=== PATIENT | female | born 1945 | race Caucasian/White ===

== ENCOUNTER 2021-06-20 11:27 | Outpatient (REF) | payer MEDICARE, SELFPAY ==
[2021-06-20 14:17] LABS: MANUAL DIFF FLAG NO
[2021-06-20 14:19] LABS: Basophils Absolute Auto 0.1 X10*3/uL (0.0-0.2); Basophils Percent Auto 1.1 % (0-2); Eosinophils Absolute Auto 0.1 X10*3/uL (0.0-0.4); Eosinophils Percent Auto 1.4 % (0-4); Hemoglobin 13.6 g/dl (12.0-16.0); Imm Gran Abs Auto 0.03 X10*3/uL (0.00-0.03); Imm Gran Pct Auto 0.4 % (0.0-0.4); Lymphocytes Absolute Auto 2.8 X10*3/uL (1.2-4.9); Lymphocytes Percent Auto 32.8 % (20-40); Mean Corpuscular HGB Conc 30.9 g/dl (31.0-35.0); Mean Corpuscular Hemoglobin 27.8 pg (27.0-33.0); Mean Corpuscular Volume 89.8 fL (80.0-98.0); Mean Platelet Volume 9.9 fL (9.4-12.3); Monocytes Absolute Auto 0.8 X10*3/uL (0.1-1.2); Monocytes Percent Auto 9.5 % (2-11); Neutrophils Absolute Auto 4.7 x10*3/uL (2.0-8.3); Neutrophils Percent Auto 54.8 % (45-73); Platelet Count 251 X10*3/uL (160-400); Red Cell Distribution Width 13.1 % (11.0-16.0); White Blood Count 8.5 X10*3/uL (4.8-10.8)
[2021-06-20 14:39] LABS: Alanine Aminotransferase 61 U/L (0-31); Albumin Level 3.9 g/dL (3.5-5.0); Alkaline Phosphatase 60 U/L (39-117); Anion Gap 17 (12-20); Aspartate Amino Transferase 30 U/L (5-31); Bilirubin Total 0.4 mg/dL (0.0-1.0); Blood Urea Nitrogen 16 mg/dL (9-16); Calcium 9.7 mg/dL (8.4-10.2); Carbon Dioxide 25 mmol/L (22-29); Chloride 102 mmol/L (96-108); Cholesterol 210 mg/dL; Estimated Glomerular Filt Rate 57; Glucose Fasting 107 mg/dL (60-99); HDL Cholesterol 58 mg/dL; LDL Cholesterol Calculated 119 mg/dl; Potassium 4.6 mmol/L (3.3-5.1); Sodium 139 mmol/L (135-145); Triglycerides 165 mg/dL
[2021-06-20 15:02] LABS: TSH reflex Free T4 1.56 uIU/mL (0.32-4.0)
== END 2021-06-20 11:28 | disposition home or self-care (01) ==
LOC: HO.WFDLDS 11:27
PROVIDERS: Visit Provider Family Medicine
DX: Z00.00 Encounter for general adult medical examination without abnormal findings (principal)
CPT/HCPCS: 36415; 80053; 80061; 84443; 85025

== ENCOUNTER 2021-08-29 10:47 | Outpatient (REF) | payer MEDICARE, SELFPAY ==
[2021-08-29 14:39] LABS: Alanine Aminotransferase 18 U/L (0-31); Albumin Level 3.8 g/dL (3.5-5.0); Alkaline Phosphatase 53 U/L (39-117); Anion Gap 14 (12-20); Aspartate Amino Transferase 16 U/L (5-31); Bilirubin Total 0.5 mg/dL (0.0-1.0); Blood Urea Nitrogen 15 mg/dL (9-16); Calcium 9.7 mg/dL (8.4-10.2); Carbon Dioxide 26 mmol/L (22-29); Chloride 104 mmol/L (96-108); Cholesterol 194 mg/dL; Estimated Glomerular Filt Rate 55; Glucose Fasting 100 mg/dL (60-99); HDL Cholesterol 55 mg/dL; LDL Cholesterol Calculated 112 mg/dl; Potassium 4.5 mmol/L (3.3-5.1); Sodium 139 mmol/L (135-145); Total Protein 7.2 g/dL (6.5-8.0); Triglycerides 137 mg/dL
[2021-08-29 15:08] LABS: Estimated Average Glucose 117 mg/dL; Hemoglobin A1c % 5.7 %
== END 2021-08-29 10:48 | disposition home or self-care (01) ==
LOC: HO.WFDLDS 10:47
PROVIDERS: Visit Provider Family Medicine
DX: Z00.00 Encounter for general adult medical examination without abnormal findings (principal); R73.01 Impaired fasting glucose; Z86.79 Personal history of other diseases of the circulatory system
CPT/HCPCS: 36415; 80053; 80061; 83036

== ENCOUNTER 2022-04-16 11:19 | Outpatient (REF) | payer MEDICARE, SELFPAY ==
[2022-04-16 15:29] LABS: Alanine Aminotransferase 13 U/L (0-31); Albumin Level 3.9 g/dL (3.5-5.0); Alkaline Phosphatase 55 U/L (39-117); Anion Gap 14 (12-20); Aspartate Amino Transferase 15 U/L (5-31); Bilirubin Total 0.6 mg/dL (0.0-1.0); Blood Urea Nitrogen 14 mg/dL (9-16); Calcium 9.2 mg/dL (8.4-10.2); Carbon Dioxide 27 mmol/L (22-29); Chloride 104 mmol/L (96-108); Cholesterol 183 mg/dL; Estimated Glomerular Filt Rate > 60; Glucose Fasting 99 mg/dL (60-99); HDL Cholesterol 51 mg/dL; LDL Cholesterol Calculated 105 mg/dl; Potassium 4.5 mmol/L (3.3-5.1); Sodium 140 mmol/L (135-145); Triglycerides 136 mg/dL
[2022-04-16 15:33] LABS: Estimated Average Glucose 120 mg/dL; Hemoglobin A1c % 5.8 %
== END 2022-04-16 11:20 | disposition home or self-care (01) ==
LOC: HO.WFDLDS 11:19
PROVIDERS: Visit Provider Family Medicine
DX: Z00.00 Encounter for general adult medical examination without abnormal findings (principal); R73.01 Impaired fasting glucose
CPT/HCPCS: 36415; 80053; 80061; 83036

== ENCOUNTER 2023-02-03 10:30 | Outpatient (REF) | payer MEDICARE, SELFPAY ==
[2023-02-03 12:01] LABS: MANUAL DIFF FLAG NO
[2023-02-03 12:03] LABS: Basophils Absolute Auto 0.1 X10*3/uL (0.0-0.2); Basophils Percent Auto 0.9 % (0-2); Eosinophils Absolute Auto 0.1 X10*3/uL (0.0-0.4); Eosinophils Percent Auto 1.6 % (0-4); Hematocrit 44.8 % (37.0-47.0); Hemoglobin 14.4 g/dl (12.0-16.0); Imm Gran Abs Auto 0.01 X10*3/uL (0.00-0.03); Imm Gran Pct Auto 0.1 % (0.0-0.4); Lymphocytes Absolute Auto 2.5 X10*3/uL (1.2-4.9); Lymphocytes Percent Auto 33.4 % (20-40); Mean Corpuscular HGB Conc 32.1 g/dl (31.0-35.0); Mean Corpuscular Hemoglobin 28.1 pg (27.0-33.0); Mean Corpuscular Volume 87.3 fL (80.0-98.0); Mean Platelet Volume 9.7 fL (9.4-12.3); Monocytes Absolute Auto 0.7 X10*3/uL (0.1-1.2); Neutrophils Absolute Auto 4.2 x10*3/uL (2.0-8.3); Platelet Count 239 X10*3/uL (160-400); Red Blood Count 5.13 X10*6/uL (4.20-5.50); White Blood Count 7.6 X10*3/uL (4.8-10.8)
[2023-02-03 13:01] LABS: Anion Gap 14 (12-20); Blood Urea Nitrogen 13 mg/dL (9-16); Calcium 10.1 mg/dL (8.4-10.2); Carbon Dioxide 27 mmol/L (22-29); Chloride 105 mmol/L (96-108); Estimated Glomerular Filt Rate > 60; Glucose Random 103 mg/dL (60-115); Sodium 142 mmol/L (135-145)
[2023-02-03 13:03] LABS: Vitamin D 25-OH Total 122.8 ng/mL (>30)
== END 2023-02-03 10:31 | disposition home or self-care (01) ==
LOC: HO.WFDLDS 10:30
PROVIDERS: Visit Provider Family Medicine
DX: Z00.00 Encounter for general adult medical examination without abnormal findings (principal); E55.9 Vitamin D deficiency, unspecified
CPT/HCPCS: 36415; 80048; 82306; 85025

== ENCOUNTER 2023-02-10 10:38 | Outpatient (AMB) | payer MEDICARE, SELFPAY ==
--- NOTE | 2023-02-10 10:45 | MHC.PC.OV ---
Vital Signs 02/10/23 10:49 Height 5 ft Weight 138 lb BMI 26.9 BP 128/60 Blood Pressure Location Lt brachial Position Sitting Pulse 92 Pulse Source Pulse Oximeter Pulse Oximetry (%) 95 Oxygen Delivery Method Room Air Intake Visit Reasons: f/u chronic conditions and labs Intake Note: Patient is here to follow up on chronic conditions and labs. Allergies amoxicillin [From Augmentin] Allergy (Unknown, Verified 02/10/23 10:51) Rash clavulanic acid [From Augmentin] Allergy (Unknown, Verified 02/10/23 10:51) Rash Seasonal Allergies Allergy (Unknown, Verified 02/10/23 10:51) Unknown codeine Allergy (Verified 02/10/23 10:51) Unknown Tobacco use date assessed: 02/10/23 Fall risk assessment: 1 Fall in past year Last assessed Fall Risk: 02/10/23 Dental Screening Dental Screen Date: 02/10/23 Did you have a dental visit in the last 12 months?: No Did you have a dental problem in the last 6 months where you did not have access to dental care?: No Was dental information given to patient?: Patient has dentist HPI f/u chronic conditions and labs HPI Details 77 y/o female presents to f/u chronic conditions and labs. Labs were drawn 02/03/23. Reviewed labs with pt. No recent lipid panel. CBC was fine. Blood pressure today 128/60. She is on atenolol 25mg daily. Pt reports fatigue. [facility] Medical History History of COVID-19 Hx of myocardial infarction Hx of coronary artery disease Surgical History History of angioplasty Family History Mother No problems noted. Father No problems noted. Social History Housing: House Patient Tobacco Use Status: Never used Tobacco e-Cigarette/Vaping Use: Never Used Second Hand Smoke Exposure: No service: No Current occupational status: retired Current occupational exposures/hazards: No Cognitive needs: No Hearing needs: No Vision needs: No Questionnaire Thrive Questionnaire Date Thrive assessed: 04/26/21 CECY-7 AMB Questionnaire CECY-7 Date CECY - 7 assessed: 09/07/21 Source: Developed by Drs. Yusef Luque, Carmen Wooten, Onel Galeas and colleagues, with an educational evette from [employer]. Review of Systems Const Reports fatigue, Denies headache(s) and Denies weakness ENT Denies dizziness and Denies headache(s) Card Denies chest pain, Denies lightheadedness, Denies dyspnea and Denies other (Palpitations) Resp Denies cough, Denies dyspnea, Denies wheezing and Denies other ( shortness of breath) Musc Denies numbness and Denies tingling Neuro Denies dizziness, Denies headache(s), Denies numbness, Denies tingling, Denies paresthesias and Denies weakness Psych Denies anxiety and Denies depression Endo Reports fatigue Aller/Immun Denies wheezing Physical exam (Primary Care) Vital Signs: Last Vital Signs Pulse 92 02/10/23 10:49 BP 128/60 02/10/23 10:49 Pulse Ox 95 02/10/23 10:49 Oxygen Delivery Method Room Air 02/10/23 10:49 BMI result Body Mass Index 26.9 Tobacco/Smoking Status: Tobacco use Status Tobacco use date assessed 02/10/23 02/10/23 11:00 Patient Tobacco Use Status Never used Tobacco 02/10/23 10:46 e-Cigarette/Vaping Use Never Used 02/10/23 10:46 Thrive Assessment: Date of Thrive Assessment Date Thrive assessed 04/26/21 02/10/23 10:46 Const General: no acute distress and well developed Nutritional Appearance: well nourished Orientation/consciousness: patient oriented [facility]3 [facility]: Yes normocephalic and Yes atraumatic Eyes General: appearance normal, both eyes and all related structures Pupils: Equal, round and reactive pupils present EOM: EOMs intact bilaterally Resp Effort & Inspection: normal respiratory effort Auscultation: clear to auscultation bilaterally Cardio Rate: regular rate Rhythm: regular rhythm Heart sounds: S1 normal heart sound present, S2 normal heart sound present, no gallops, no murmurs and no rubs Neuro General: patient oriented x3 and gait normal Cranial nerves: Yes Equal, round and reactive pupils present Psych Affect: normal affect Assessment and Plan Assessment & Plan (1) Hypertension: Code(s): I10 - Essential (primary) hypertension Plan: Blood?pressure?is?controlled.??Goal?is?less?than?130/80 Continue?current?medication?regimen (2) Hyperlipidemia: Code(s): E78.5 - Hyperlipidemia, unspecified Plan: Will?be?due?for?lipid?check?at?next?visit Labs?ordered (3) Coronary artery disease: Code(s): I25.10 - Atherosclerotic heart disease of [place] coronary artery without angina pectoris Plan: As?above.??Goal?for?LDL?is?less?than?70 Recheck?lipids?with?next?visit Primarily?has?her?lipids?controlled?by?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 No?S/S?sleep?apnea Likely?anxiety Patient?declines?medications?or?therapy Encouraged?ongoing?exercise Check?labs (5) Anxiety: Code(s): F41.9 - Anxiety disorder, unspecified Plan: As?above (6) Difficulty sleeping: Code(s): G47.9 - Sleep disorder, unspecified Plan: As?above Orders: Orders Comprehensive [place]. Panel Fast Today Z00.00 - Encounter for general adult medical examination without abnormal findings Triiodothyronine T3 Total Today E03.9 - Hypothyroidism, unspecified Free T4 (Free Thyroxine) Today E03.9 - Hypothyroidism, unspecified Lipid Panel Today Z00.00 - Encounter for general adult medical examination without abnormal findings Microalbumin, Random (w Creat) Today I10 - Essential (primary) hypertension UA and rflx microscopic Today Z00.00 - Encounter for general adult medical examination without abnormal findings Thyroid Stimulating Hormone Today E03.9 - Hypothyroidism, unspecified Vitamin D 25-OH Total Today E55.9 - Vitamin D deficiency, unspecified Coding Level of Care Code Est Pt Level 4 (47243) Diagnoses Hypertension I10 Hyperlipidemia E78.5 Coronary artery disease I25.10 Fatigue R53.83 Anxiety F41.9 Difficulty sleeping G47.9
[2023-02-10 10:49] VITALS: BP 128/60; PULSE 92; O2SAT 95; BMI 26.9
== END 2023-02-10 11:27 | disposition home or self-care (01) ==
PROVIDERS: PCP Family Medicine; Visit Provider Family Medicine
DX: I10 Essential (primary) hypertension (principal); E78.5 Hyperlipidemia, unspecified; I25.10 Atherosclerotic heart disease of native coronary artery without angina pectoris; R53.83 Other fatigue; F41.9 Anxiety disorder, unspecified; G47.9 Sleep disorder, unspecified
CPT/HCPCS: 99214

== ENCOUNTER 2023-07-01 10:47 | Outpatient (REF) | payer MEDICARE, SELFPAY ==
[2023-07-01 12:55] LABS: Alanine Aminotransferase 19 U/L (0-31); Alkaline Phosphatase 84 U/L (39-117); Anion Gap 14 (12-20); Aspartate Amino Transferase 15 U/L (5-31); Bilirubin Total 0.4 mg/dL (0.0-1.0); Blood Urea Nitrogen 16 mg/dL (9-16); Calcium 9.8 mg/dL (8.4-10.2); Carbon Dioxide 28 mmol/L (22-29); Chloride 105 mmol/L (96-108); Cholesterol 223 mg/dL (<200); Estimated Glomerular Filt Rate > 60; Glucose Fasting 116 mg/dL (60-99); HDL Cholesterol 64 mg/dL (>40); LDL Cholesterol Calculated 131 mg/dL (<100); Potassium 4.4 mmol/L (3.3-5.1); Sodium 143 mmol/L (135-145); Total Protein 7.2 g/dL (6.5-8.0); Triglycerides 143 mg/dL (<150)
[2023-07-01 13:14] LABS: Free T4 (Free Thyroxine) 0.92 ng/dL (0.71-1.85); Thyroid Stimulating Hormone 1.66 uIU/mL (0.32-4.0); Vitamin D 25-OH Total 103.3 ng/mL (>30)
[2023-07-04 08:58] LABS: Triiodothyronine T3 Total 100 ng/dL (76-181)
== END 2023-07-01 10:48 | disposition home or self-care (01) ==
LOC: HO.WFDLDS 10:47
PROVIDERS: Visit Provider Family Medicine
DX: Z00.00 Encounter for general adult medical examination without abnormal findings (principal); E03.9 Hypothyroidism, unspecified; E55.9 Vitamin D deficiency, unspecified; I10 Essential (primary) hypertension
CPT/HCPCS: 36415; 80053; 80061; 82306; 84439; 84443; 84480

== ENCOUNTER 2023-07-14 10:13 | Outpatient (AMB) | payer MEDICARE, SELFPAY ==
[2023-07-14 10:25] VITALS: BP 140/82; PULSE 89; O2SAT 98; BMI 27.1
--- NOTE | 2023-07-14 10:25 | MHC.PC.OV ---
Vital Signs 07/14/23 10:25 Height 5 ft Weight 139 lb BMI 27.1 BP 140/82 H Blood Pressure Location Lt brachial Position Sitting Pulse 89 Pulse Source Pulse Oximeter Pulse Oximetry (%) 98 Oxygen Delivery Method Room Air Intake Visit Reasons: f/u chronic conditions and labs Intake Note: Patient is here to follow up on chronic conditions and labs. Patient has requested refill of Atenolol. Allergies amoxicillin [From Augmentin] Allergy (Unknown, Verified 07/14/23 10:29) Rash clavulanic acid [From Augmentin] Allergy (Unknown, Verified 07/14/23 10:29) Rash Seasonal Allergies Allergy (Unknown, Verified 07/14/23 10:29) Unknown codeine Allergy (Verified 07/14/23 10:29) Unknown Medication List - Last Reconciled 07/14/23 by Roldan Carty MD acetylcysteine (NAC) 600 mg PO DAILY apple cider vinegar mg PO ascorbic acid (vitamin C) 500 mg PO BID aspirin 81 mg PO DAILY atenolol 25 mg (1/2 x 50 mg) PO DAILY 90 days cholecalciferol (vitamin D3) 50 mcg PO DAILY glucosamine sulfate 1,000 mg PO BID magnesium hydroxide mg PO omega 0-vft-utq-fish oil 1,000 mg (120 mg-180 mg) 1 cap PO DAILY red clover leaf extract mg PO Tobacco use date assessed: 07/14/23 Fall risk assessment: No Falls in past year Last assessed Fall Risk: 07/14/23 Dental Screening Dental Screen Date: 07/14/23 HPI f/u chronic conditions and labs HPI Details 78 y/o female presents to f/u chronic conditions and labs. Blood pressure today 140/82. She notes she needs a refill on her atenolol and has not taken this today. Labs were drawn 07/01/23. Elevated fasting glucose and last A1c 04/16/22 5.8% - in pre-diabetes range. TC 223. Triglycerides 143. LDL 131. HDL 64. Pt reports some fatigue and feels she is tired all the time. [facility] Medical History History of COVID-19 Hx of myocardial infarction Hx of coronary artery disease Surgical History History of angioplasty Family History Mother No problems noted. Father No problems noted. Social History Housing: House Patient Tobacco Use Status: Never used Tobacco e-Cigarette/Vaping Use: Never Used Second Hand Smoke Exposure: No service: No Current occupational status: retired Current occupational exposures/hazards: No Cognitive needs: No Hearing needs: No Vision needs: No Questionnaire PHQ-9 Over the last 2 weeks, how often have you been bothered by any of the following problems? 47802 - PHQ-9 Billing: Patient declined-do not bill Source: Developed by Drs. Yusef Luque, Carmen Wooten, Onel Galeas and colleagues, with an educational evette from [employer]. Thrive Questionnaire Date Thrive assessed: 07/14/23 I am a: Patient What is your living situation today?: I have a steady place to live Within the past 12 months, did the food you bought not last and you didn't have the money to get more?: Never true Within the past 12 months, did you worry whether your food would run out before you got money to buy more?: Never true Do you have trouble paying for medicines?: No Do you have trouble getting transportation to medical appointments?: No Do you have trouble paying your heating and electricity bill?: No Do you have trouble taking care of your child, family member or friend?: No Do you have trouble with day-to-day activities such as bathing, preparing meals, shopping, managing finances, etc.?: No Are you currently unemployed and looking for a job?: No Are you interested in more education?: No THRIVE Score: 0 AUDIT C Alcohol Use Questionnaire (AUDIT-C) 1. How often do you have a drink containing alcohol?: Monthly or less 2. How many drinks containing alcohol do you have on a typical day when you are drinking?: 1 or 2 3. How often do you have six or more drinks on one occasion?: Never Total Score: 1 CECY-7 AMB Questionnaire CECY-7 Date CECY - 7 assessed: 07/14/23 Source: Developed by Drs. Yusef Luque, Carmen Wooten, Onel Galeas and colleagues, with an educational evette from [employer]. CECY-7 Assessment Billing CECY-7 Assessment Tool: pt declined-do not bill Review of Systems Const Denies chills, Reports fatigue, Denies fever(s), Denies headache(s) and Denies weakness ENT Denies dizziness and Denies headache(s) Card Denies dyspnea Resp Denies cough, Denies dyspnea, Denies wheezing and Denies other (shortness of breath) Musc Denies numbness and Denies tingling Neuro Denies dizziness, Denies headache(s), Denies numbness, Denies tingling and Denies weakness Psych Denies anxiety and Denies depression Endo Reports fatigue Aller/Immun Denies wheezing Physical exam (Primary Care) Vital Signs: Last Vital Signs Pulse 89 07/14/23 10:25 BP 140/82 H 07/14/23 10:25 Pulse Ox 98 07/14/23 10:25 Oxygen Delivery Method Room Air 07/14/23 10:25 BMI result Body Mass Index 27.1 Tobacco/Smoking Status: Tobacco use Status Tobacco use date assessed 07/14/23 07/14/23 10:34 Patient Tobacco Use Status Never used Tobacco 07/14/23 10:28 e-Cigarette/Vaping Use Never Used 07/14/23 10:28 Thrive Assessment: Date of Thrive Assessment Date Thrive assessed 07/14/23 07/14/23 10:41 Const General: well developed; No acute distress Nutritional Appearance: well nourished Orientation/consciousness: patient oriented x3 HENMT Head: Yes normocephalic and Yes atraumatic Eyes General: appearance normal, both eyes and all related structures Pupils: Equal, round and reactive pupils present EOM: EOMs intact bilaterally Resp Effort & Inspection: normal respiratory effort Auscultation: clear to auscultation bilaterally Cardio Rate: regular rate Rhythm: regular rhythm Heart sounds: S1 normal heart sound present, S2 normal heart sound present, no gallops, no murmurs and no rubs Neuro General: patient oriented x3 and gait normal Cranial nerves: Yes Equal, round and reactive pupils present Psych Affect: normal affect Assessment and Plan Assessment & Plan (1) Hypertension: Code(s): I10 - Essential (primary) hypertension Plan: Blood?pressure?is?a?little?elevated?today?but?she?has?not?taken?her?medication?as?she?is?out?of?it.??Goal?is?less?than?130/80 Refilled?atenolol (2) Pre-diabetes: Code(s): R73.03 - Prediabetes Plan: A1c?has?been?in?pre?diabetes?range.??Blood?sugars?still?elevated Encouraged?diet?lower?in?sugars?and?starches Will?recheck?along?with?A1c?with?her?next?blood?draw (3) Hyperlipidemia: Code(s): E78.5 - Hyperlipidemia, unspecified Plan: Lipids?are?high?and?goal?for?LDL?is?less?than?70?as?she?has?coronary?artery?disease She?declines?statins She?can?try?red?yeast?rice?and?lecithin Also?briefly?mentioned?Zetia Will?recheck?in?3-6?months (4) Coronary artery disease: Code(s): I25.10 - Atherosclerotic heart disease of [place] coronary artery without angina pectoris Plan: Encouraged?good?blood?pressure?control?and?also?better?control?of?her?lipids?and?sugars Follow-up?with?Cardiology?as?recommended Currently?stable (5) Folliculitis: Code(s): L73.9 - Follicular disorder, unspecified Plan: Try?Hibiclens Orders: Orders Comprehensive [place]. Panel Fast Today Z00.00 - Encounter for general adult medical examination without abnormal findings Lipid Panel Today Z00.00 - Encounter for general adult medical examination without abnormal findings Hemoglobin A1c Today R73.01 - Impaired fasting glucose Medications: Refilled atenolol 25 mg (1/2 x 50 mg) PO DAILY 90 days 45 tabs 3RF Coding Level of Care Code Est Pt Level 4 (79447) Diagnoses Hypertension I10 Pre-diabetes R73.03 Hyperlipidemia E78.5 Coronary artery disease I25.10 Folliculitis L73.9
== END 2023-07-14 11:35 | disposition home or self-care (01) ==
PROVIDERS: PCP Family Medicine; Visit Provider Family Medicine
DX: I10 Essential (primary) hypertension (principal); R73.03 Prediabetes; E78.5 Hyperlipidemia, unspecified; I25.10 Atherosclerotic heart disease of native coronary artery without angina pectoris; L73.9 Follicular disorder, unspecified
CPT/HCPCS: 99214

== ENCOUNTER 2023-11-04 10:51 | Outpatient (REF) | payer MEDICARE, SELFPAY ==
[2023-11-04 17:09] LABS: Estimated Average Glucose 117 mg/dL; Hemoglobin A1c % 5.7 % (<6.0)
[2023-11-04 17:19] LABS: Alanine Aminotransferase 16 U/L (0-31); Albumin Level 4.1 g/dL (3.5-5.0); Alkaline Phosphatase 74 U/L (39-117); Anion Gap 15 (12-20); Aspartate Amino Transferase 18 U/L (5-31); Bilirubin Total 0.6 mg/dL (0.0-1.0); Blood Urea Nitrogen 12 mg/dL (9-16); Calcium 10.1 mg/dL (8.4-10.2); Carbon Dioxide 28 mmol/L (22-29); Chloride 105 mmol/L (96-108); Cholesterol 198 mg/dL (<200); Estimated Glomerular Filt Rate 58; Glucose Fasting 116 mg/dL (60-99); HDL Cholesterol 67 mg/dL (>40); LDL Cholesterol Calculated 109 mg/dL (<100); Potassium 4.6 mmol/L (3.3-5.1); Sodium 143 mmol/L (135-145); Total Protein 7.7 g/dL (6.5-8.0); Triglycerides 110 mg/dL (<150)
== END 2023-11-04 10:52 | disposition home or self-care (01) ==
LOC: HO.WFDLDS 10:51
PROVIDERS: Visit Provider Family Medicine
DX: Z00.00 Encounter for general adult medical examination without abnormal findings (principal); R73.01 Impaired fasting glucose
CPT/HCPCS: 36415; 80053; 80061; 83036

== ENCOUNTER 2023-11-10 10:52 | Outpatient (AMB) | payer MEDICARE, SELFPAY ==
--- NOTE | 2023-11-10 11:51 | MHC.PC.OV ---
Vital Signs 11/10/23 12:03 Height 4 ft 11.09 in Weight 135 lb 6 oz BMI 27.3 BP 110/76 Blood Pressure Location Lt brachial Position Sitting Respiration 18 Pulse 96 Pulse Source Pulse Oximeter Temp 98 F Temp Source Tympanic Pulse Oximetry (%) 95 Oxygen Delivery Method Room Air Intake Visit Reasons: f/u extended?exam?and?f/u?lipids?and?health? Intake Note: follow up on labs,and cellulites, pt had an allergic reaction to lesathin medication due to the soy within it Allergies soy Allergy (Severe, Verified 11/10/23 11:53) Hives amoxicillin [From Augmentin] Allergy (Unknown, Verified 11/10/23 11:53) Rash clavulanic acid [From Augmentin] Allergy (Unknown, Verified 11/10/23 11:53) Rash Seasonal Allergies Allergy (Unknown, Verified 11/10/23 11:53) Unknown codeine Allergy (Verified 11/10/23 11:53) Unknown Medication List - Last Reconciled 11/10/23 by Roldan Carty MD acetylcysteine (NAC) 600 mg PO DAILY ascorbic acid (vitamin C) 500 mg PO BID aspirin 81 mg PO DAILY atenolol 25 mg (1/2 x 50 mg) PO DAILY 90 days cholecalciferol (vitamin D3) 50 mcg PO DAILY glucosamine sulfate 1,000 mg PO BID magnesium hydroxide mg PO red clover leaf extract mg PO turmeric root extract 1,000 mg PO DAILY Tobacco use date assessed: 07/14/23 Dental Screening Dental Screen Date: 07/14/23 HPI f/u extended?exam?and?f/u?lipids?and?health? HPI Details 78 y/o female presents today for a physical but visit has been converted to an acute visit. Labs were drawn 11/04/23. Reviewed labs with pt. A1c 5.7%. Triglycerides 110. TC 198. LDL 109. HDL 67. Blood pressure today 110/76. She is on atenolol 25mg daily. She has complaints of an allergic reaction to soy. [facility] Medical History History of COVID-19 Hx of myocardial infarction Hx of coronary artery disease Surgical History History of angioplasty Family History Mother No problems noted. Father No problems noted. Social History Housing: House Patient Tobacco Use Status: Never used Tobacco e-Cigarette/Vaping Use: Never Used Second Hand Smoke Exposure: No service: No Current occupational status: retired Current occupational exposures/hazards: No Cognitive needs: No Hearing needs: No Vision needs: No Questionnaire Thrive Questionnaire Date Thrive assessed: 07/14/23 CECY-7 AMB Questionnaire CECY-7 Date CECY - 7 assessed: 07/14/23 Source: Developed by Drs. Yusef Luque, Carmen Wooten, Onel Galeas and colleagues, with an educational evette from [employer]. Review of Systems Const Denies chills, Denies fatigue, Denies fever(s), Denies headache(s) and Denies weakness Eyes Denies change in vision ENT Denies dizziness, Denies headache(s), Denies hearing loss, Denies nasal congestion, Denies sinus pain, Denies sinus pressure and Denies sore throat Card Denies chest pain, Denies lightheadedness, Denies dyspnea and Denies other (palpitations) Resp Denies cough, Denies dyspnea and Denies wheezing GI Denies abdominal pain, Denies melena, Denies hematochezia, Denies change in bowel habits, Denies dyspepsia and Denies nausea Denies hematuria and Denies dysuria Musc Denies abnormal gait, Denies myalgias, Denies arthralgias, Denies numbness and Denies tingling Skin/Breast Denies rash, Denies unusual bruising and Denies wounds Neuro Denies abnormal gait, Denies dizziness, Denies headache(s), Denies memory loss, Denies numbness, Denies tingling and Denies weakness Psych Denies anxiety, Denies depression and Denies memory loss Endo Denies cold intolerance, Denies fatigue, Denies heat intolerance, Denies polydipsia and Denies polyuria Kamran/Lymph Denies easy bleeding and Denies easy bruising Aller/Immun Denies wheezing Physical exam (Primary Care) Vital Signs: Last Vital Signs Temp 98 F 11/10/23 12:03 Pulse 96 11/10/23 12:03 Resp 18 11/10/23 12:03 BP 110/76 11/10/23 12:03 Pulse Ox 95 11/10/23 12:03 Oxygen Delivery Method Room Air 11/10/23 12:03 BMI result Body Mass Index 27.3 Tobacco/Smoking Status: Tobacco use Status Tobacco use date assessed 07/14/23 11/10/23 12:05 Patient Tobacco Use Status Never used Tobacco 11/10/23 12:05 e-Cigarette/Vaping Use Never Used 11/10/23 12:05 Thrive Assessment: Date of Thrive Assessment Date Thrive assessed 07/14/23 11/10/23 12:05 Const General: no acute distress, well developed, alert and awake Nutritional Appearance: well nourished Orientation/consciousness: patient oriented x3 HENMT Head: Yes normocephalic and Yes atraumatic Eyes General: appearance normal, both eyes and all related structures Pupils: Equal, round and reactive pupils present EOM: EOMs intact bilaterally Chest Chest palpation & inspection: normal inspection of the chest Resp Effort & Inspection: normal respiratory effort Auscultation: clear to auscultation bilaterally Cardio Rate: regular rate Rhythm: regular rhythm Neuro General: patient oriented x3 and gait normal Cranial nerves: Yes Equal, round and reactive pupils present Deep tendon reflexes (DTR's): Right patellar reflex intensity grade: 2+ and Left patellar reflex intensity grade: 2+ Psych Affect: normal affect Assessment and Plan Assessment & Plan (1) Hypertension: Code(s): I10 - Essential (primary) hypertension Plan: Blood?pressure?is?controlled.??Goal?is?less?than?130/80 Continue?current?medication (2) Hyperlipidemia: Code(s): E78.5 - Hyperlipidemia, unspecified Plan: Patient?has?elevated?LDL?cholesterol?and?history?of?coronary?artery?disease.??Goal?for?LDL?is?less?than?70?and?she?was?significantly?above?this. Patient?is?adamantly?against?statins. We?had?recommended?red?yeast?rice?and?lecithin?because?she?was?more?interested?in?trying?supplements?for?this. However,?patient?seems?to?have?an?allergic?reaction?and?attributes?it?to?those?supplements.??Unclear?how?long?she?persisted?in?taking?this?though?she?has?stopped?it?now. She?has?brought?her?cholesterol?down??but?is?still?significantly?above?goal?of?less?than?70 Continue?lifestyle?changes (3) Coronary artery disease: Code(s): I25.10 - Atherosclerotic heart disease of [place] coronary artery without angina pectoris Plan: Stable (4) Allergic dermatitis: Code(s): L23.9 - Allergic contact dermatitis, unspecified cause Plan: As?above,?patient?has?what?appears?to?be?allergic?dermatitis.??She?is?concerned?about?cellulitis?but?has?no?fevers,?excess?warmth,?no?pain. Primary?signs/symptoms?are?mild?erythema?will?with?significant?itching?and?some?small?excoriations over?both?forearms,?shoulders?and?anterior?chest.??Also?some?involvement?at?left?ribs?and?top?of?shoulders. We?discussed?that?this?does?appear?allergic?and?may?be?due?to?the?supplements?that?we?had?discussed?at?her?last?visit. She?had?called?a telemedicine?physician?and?was?given?a?topical?steroid?which?has?helped?a?little?bit?with?the?itch.??She?would?like?to?trial?an?oral?steroids?such?as?prednisone. Will?give?her?a?7?day?course?of?steroids?and?follow-up?with?her?in?about?10?days. Will?make?a?referral?to?immunology?as?this?has?been?going?on?for?quite?some?time.??Will?also?make?a?referral?to?Dermatology?to?help?with?skin?lesions?and?itch. Orders: Referrals Allergy & Immunology Referral L23.9 - Allergic contact dermatitis, unspecified cause, T78.40XA - Allergy, unspecified, initial encounter Dermatology Referral L23.9 - Allergic contact dermatitis, unspecified cause Medications: New prednisone 2 tablets x 3 days, then 1 tablet x 2 day, then 1/2 tablet x 2 days then stop. 7 days 9 tabs 0RF Coding Level of Care Code Est Pt Level 4 (85218) Diagnoses Hypertension I10 Hyperlipidemia E78.5 Coronary artery disease I25.10 Allergic dermatitis L23.9
[2023-11-10 12:03] VITALS: BP 110/76; PULSE 96; RESP 18; TEMP 36.6; O2SAT 95; BMI 27.3
== END 2023-11-10 13:06 | disposition home or self-care (01) ==
PROVIDERS: PCP Family Medicine; Visit Provider Family Medicine
DX: I10 Essential (primary) hypertension (principal); E78.5 Hyperlipidemia, unspecified; I25.10 Atherosclerotic heart disease of native coronary artery without angina pectoris; L23.9 Allergic contact dermatitis, unspecified cause
CPT/HCPCS: 99214

== ENCOUNTER 2023-11-25 13:37 | Outpatient (AMB) | payer MEDICARE, SELFPAY ==
--- NOTE | 2023-11-25 13:43 | A.OFFPC_ITS ---
Vital Signs 11/25/23 13:45 Height 5 ft 1 in Weight 136 lb 2 oz BMI 25.7 BP 120/60 Blood Pressure Location Lt brachial Position Sitting Respiration 12 Pulse 94 Pulse Source Pulse Oximeter Temp 98 F Temp Source Tympanic Pulse Oximetry (%) 96 Oxygen Delivery Method Room Air Intake Visit Reasons: F/U for allergic reaction Intake Note: follow up for allergic reaction Allergies soy Allergy (Severe, Verified 11/25/23 13:44) Hives amoxicillin [From Augmentin] Allergy (Unknown, Verified 11/25/23 13:44) Rash clavulanic acid [From Augmentin] Allergy (Unknown, Verified 11/25/23 13:44) Rash Seasonal Allergies Allergy (Unknown, Verified 11/25/23 13:44) Unknown codeine Allergy (Verified 11/25/23 13:44) Unknown Medication List - Last Reconciled 11/25/23 by Roldan Carty MD acetylcysteine (NAC) 600 mg PO DAILY ascorbic acid (vitamin C) 500 mg PO BID aspirin 81 mg PO DAILY atenolol 25 mg (1/2 x 50 mg) PO DAILY 90 days cholecalciferol (vitamin D3) 50 mcg PO DAILY glucosamine sulfate 1,000 mg PO BID magnesium hydroxide mg PO prednisone 2 tablets x 3 days, then 1 tablet x 2 day, then 1/2 tablet x 2 days then stop. 7 days red clover leaf extract mg PO turmeric root extract 1,000 mg PO DAILY Tobacco use date assessed: 07/14/23 Dental Screening Dental Screen Date: 07/14/23 HPI F/U for allergic reaction HPI Details 78 y/o female presents today to f/u jenni rgic reaction with allergic dermatitis. Had given her a 7 day course of prednisone. Continued her topical steroid and allergra/benadryl for the itch. Had also referred her to immunology/allergy and also to dermatology. Pt reports allergic dermatitis has been improving but still reports some irritation. She notes she has not gotten a call from dermatology or immunology yet. She reports ongoing stressors. [facility] Medical History History of COVID-19 Hx of myocardial infarction Hx of coronary artery disease Surgical History History of angioplasty Family History Mother No problems noted. Father No problems noted. Social History Housing: House Patient Tobacco Use Status: Never used Tobacco e-Cigarette/Vaping Use: Never Used Second Hand Smoke Exposure: No service: No Current occupational status: retired Current occupational exposures/hazards: No Cognitive needs: No Hearing needs: No Vision needs: No Questionnaire Thrive Questionnaire Date Thrive assessed: 07/14/23 CECY-7 AMB Questionnaire CECY-7 Date CECY - 7 assessed: 07/14/23 Source: Developed by Drs. Yusef Luque, Carmen Wooten, Onel Galeas and colleagues, with an educational evette from [employer]. Review of Systems Const Denies chills, Denies fatigue, Denies fever(s), Denies headache(s) and Denies weakness ENT Denies dizziness and Denies headache(s) Card Denies dyspnea Resp Denies cough, Denies dyspnea, Denies wheezing and Denies other (shortness of breath) Musc Denies numbness and Denies tingling Neuro Denies dizziness, Denies headache(s), Denies numbness, Denies tingling and Denies weakness Psych Reports anxiety and Denies depression Endo Denies fatigue Aller/Immun Denies wheezing Physical exam (Primary Care) Tobacco/Smoking Status: Tobacco use Status Tobacco use date assessed 07/14/23 11/10/23 13:15 Patient Tobacco Use Status Never used Tobacco 11/10/23 13:15 e-Cigarette/Vaping Use Never Used 11/10/23 13:15 Thrive Assessment: Date of Thrive Assessment Date Thrive assessed 07/14/23 11/10/23 13:15 Const General: well developed; No acute distress Nutritional Appearance: well nourished Orientation/consciousness: patient oriented x3 HENMT Head: Yes normocephalic and Yes atraumatic Eyes General: appearance normal, both eyes and all related structures Pupils: Equal, round and reactive pupils present EOM: EOMs intact bilaterally Resp Effort & Inspection: normal respiratory effort Auscultation: clear to auscultation bilaterally Cardio Rate: regular rate Rhythm: regular rhythm Heart sounds: S1 normal heart sound present, S2 normal heart sound present, no gallops, no murmurs and no rubs Neuro General: patient oriented x3 and gait normal Cranial nerves: Yes Equal, round and reactive pupils present Psych Affect: normal affect Assessment and Plan Assessment & Plan (1) Allergic dermatitis: Code(s): L23.9 - Allergic contact dermatitis, unspecified cause Plan: Improved?though?patient?still?has?some?erythematous?patches?of?skin She?can?continue?using?topical?steroid?as?needed Should?also?use?a?moisturizer?that?has?no?dyes?or?perfumes Call?or?return?to?office?if?worsening (2) Hyperlipidemia: Code(s): E78.5 - Hyperlipidemia, unspecified Plan: Patient?had?had?LDL?cholesterol?around?131?and?I?had?advised?medication?but?she? adamantly?declines?statin?medication. Had?tried?lecithin?which?patient?got?as?a?soy derived?lecithin?and?had?allergic?reaction?to?this?though?at?the?time?she?had?no ?mention?of?allergy?to?soy. She?has?stop?the?medication She?could?consider?sunflower?derived?lecithin She?can?try?red?yeast?rice?but?she?declines?this We?also?discussed?Zetia?but?she?is?declining?this She?can?discuss?with?her?manager of medical (3) Anxiety: Code(s): F41.9 - Anxiety disorder, unspecified Plan: Significant?anxiety. Declines?medication?and?therapist Patient?is?somewhat?ambivalent?about?whether?or?not?she?feels?safe?with?her?husb and.??Declines?referral?or?out?reach?from?our?nurse?navigator?at?this?time?but?I ?did?let?her?know?that?she?can?reach ?out?to?us?at?any?time?for?help.??Patient?understands. Also?advised?exercise Coding Level of Care Code Est Pt Level 4 (14142) Diagnoses Allergic dermatitis L23.9 Hyperlipidemia E78.5 Anxiety F41.9
[2023-11-25 13:45] VITALS: BP 120/60; PULSE 94; RESP 12; TEMP 36.6; O2SAT 96; BMI 25.7
--- OUTSIDE RECORDS SUMMARY | 2023-11-26 08:15 | XMS_ITS | Continuity of Care Document ---
Author Organization [facility] Address [address] [place] [address]- Care Team Providers Care Pharmacy Technician Inpatient Name Role Phone Machelle FISHER, Roldan Slater Primary Care Physician Encounter [facility] [place] Date(s): 06/28/22 - 10/26/22 [facility] [address] [place] [id number]- Attending Physician: Cassandra Edwards MD Admitting Physician: Cassandra Edwards MD Referring Physician: Roldan Carty MD Allergies, Adverse Reactions, Alerts Substance Reaction Severity Status codeine Active Augmentin Active Other Environmental Allergy Active Immunizations Given and Recorded Vaccine Date Status Refusal Reason influenza virus vaccine, inactivated 02/01/20 Give n Medications Aspirin Chew Tablet 81, mg, Chew, Daily, 30, 11, 0, 11, 07/06/07 14:37:16, Print MARYANNE Number, ADS OPPTHS, [id number] Start Date: 07/06/07 Status: Ordered atenolol 50 mg oral tablet 1, tablet, By Mouth, Daily, # 90 tablet, Refills 0, Route to Pharmacy Electronically, [facility] #[id number], 152, cm, 08/09/20 9:27:00 EDT, Height Start Date: 07/16/21 Status: Ordered Citracal Maximum + Vitamin D Tablet 2 tablet, By Mouth, 2 times a day, 0 Refills, Maintenance, 08/16/15 8:23:26 Start Date: 08/16/15 Status: Ordered Citracal Plus with Magnesium 1, tablet, By Mouth, Daily, 0, 0, 01/25/08 15:19:23, Print MARYANNE Number, [id number], Constant Indicator Start Date: 01/25/08 Status: Ordered collagen peptides collagen peptides, Refills 0, Maintenance, 08/21/21 10:23:00 EDT, Supply Start Date: 08/21/21 Status: Ordered elderberry 0 Refills, Maintenance, 08/21/21 10:22:00 EDT, Partial fill upon patient request if the prescription is for a schedule II opioid drug. Start Date: 08/21/21 Status: Ordered estradiol-norethindrone 1 mg-0.5 mg oral tablet 1 tablet, By Mouth, Daily, # 28 tablet, 2 Refills, Maintenance, 09/05/22 16:20:00 EDT, [facility] #[id number], 28, TAKE 1 TABLET BY MOUTH DAILY, 152, cm, 08/30/21 14:18:00 EDT, Height Start Date: 09/05/22 Status: Ordered Glucosamine 2000, By Mouth, Daily, 0 Refills, 01/25/08 15:19:39 EDT Start Date: 01/25/08 Status: Ordered magnesium aspartate = 1,230 mg, By Mouth, 2 times a day, 0 Refills, Maintenance, 08/21/21 10:22:00 EDT, Partial fill upon patient request if the prescription is for a schedule II opioid drug. Start Date: 08/21/21 Status: Ordered metroNIDAZOLE 0.75% topical cream 1 applicator, Topically, 2 times a day, 0 Refills, Maintenance, 08/16/15 8:23:56 Start Date: 08/16/15 Status: Ordered Olympia-3 Fish Oil = 1,000 mg, By Mouth, Daily, 0 Refills, Maintenance, 08/21/21 10:22:00 EDT, Partial fill upon patient request if the prescription is for a schedule II opioid drug. Start Date: 08/21/21 Status: Ordered Braun Colon Health 1 capsule, By Mouth, Daily, 0 Refills, Maintenance, 08/16/16 8:01:43 Start Date: 08/16/16 Status: Ordered tretinoin topical 0.025% gel 1, applicator, Topically, 0, 0, 01/25/08 15:20:05, Print MARYANNE Number, Constant Indicator Start Date: 01/25/08 Status: Ordered turmeric = 500 mg, By Mouth, Daily, 0 Refills, Maintenance, 08/21/21 10:23:00 EDT, Partial fill upon patientrequest if the prescription is for a schedule II opioid drug. Start Date: 08/21/21 Status: Ordered Vitamin C 1000 mg oral tablet See Instructions, 2 tablet By Mouth Daily, 0 Refills, Maintenance, 12/12/16 11:12:11, Tablet Start Date: 12/12/16 Status: Ordered Vitamin D3 1000 intl units oral capsule 1 capsule = 1,000 International_Units, By Mouth, Daily, # 75 capsule, 0 Refills, Maintenance, 07/27/20 10:29:00 EDT, Capsule, Partial fill upon patient request if the prescription is for a schedule II opioid drug. Start Date: 07/27/20 Status: Ordered Zinc = 140 mg, By Mouth, Daily, 0 Refills, Maintenance, 07/27/20 10:28:00 EDT, Partial fill upon patientrequest if the prescription is for a schedule II opioid drug. 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 Confirmed Active Menopause Confirmed Active Social History Social History Type Response Smoking Status Never (less than 100 in lifetime) entered on: 08/28/18 Sex Patient Care team information Care Team Personnel Name: Roldan Carty MD Position: [facility] Outreach Member Role: PCP Address: Address: [address] [place] [phone]- Name: Dean Del Rio MD Position: [facility] STRING STUDIES DIRECTOR MD Member Role: Lifetime STRING STUDIES DIRECTOR Physician Address: Address: [address] [place] [address] [facility] [place] [address]- Care Team Related Persons Name: IHSAN NOONAN Address: home [address] [place] [address]
--- OUTSIDE RECORDS SUMMARY | 2023-11-26 08:15 | XMS_ITS | Continuity of Care Document ---
Author Organization [facility] Address [address] [place] [address]- Care Team Providers Care Cleaning Custodian Name Role Phone Briana FISHER, Derrick Jorge Primary Care Physician Encounter [facility] [place] Date(s): 03/25/19 - 04/04/19 [facility] [address] [place] [address]- [facility] Attending Physician: Germaine Loera Admitting Physician: AdmtrGermaine Referring Physician: AdmtrGermaine Allergies, Adverse Reactions, Alerts Substance Reaction Severity Status codeine Active Augmentin Active Medications Aspirin Chew Tablet 81, mg, Chew, Daily, 30, 11, 0, 11, 07/06/07 14:37:16, Print MARYANNE Number, ADS OPPTHS, [id number] Start Date: 07/06/07 Status: Ordered atenolol 50 mg oral tablet 50 mg, 1, tablet, By Mouth, Daily, # 90 tablet, Refills 1, Tot. Refills 1, Maintenance, 04/02/19 11:13:00 EST, Route to Pharmacy Electronically, [facility] #[id number], disregard order for 25 mg,152.4, cm, 03/22/19 10:01:00 EST, Height Start Date: 04/02/19 Status: Ordered Citracal Maximum + Vitamin D Tablet 2 tablet, By Mouth, 2 times a day, 0 Refills, Maintenance, 08/16/15 8:23:26 Start Date: 08/16/15 Status: Ordered Citracal Plus with Magnesium 1, tablet, By Mouth, Daily, 0, 0, 01/25/08 15:19:23, Print MARYANNE Number, [id number], Constant Indicator Start Date: 01/25/08 Status: Ordered femhrt 0.5 mg/2.5 mcg oral tablet 2 tablet, By Mouth, Daily, brand name only medically necessary, # 56 tablet, 15 Refills, Maintenance, 08/28/18 8:20:02 EDT, 2 tablet By Mouth Daily,Instr:brand name only medically necessary Start Date: 08/28/18 Status: Ordered Glucosamine 2000, By Mouth, Daily, 0 Refills, 01/25/08 15:19:39 EDT Start Date: 01/25/08 Status: Ordered metroNIDAZOLE 0.75% topical cream 1 applicator, Topically, 2 times a day, 0 Refills, Maintenance, 08/16/15 8:23:56 Start Date: 08/16/15 Status: Ordered Braun Colon Health 1 capsule, By Mouth, Daily, 0 Refills, Maintenance, 08/16/16 8:01:43 Start Date: 08/16/16 Status: Ordered tretinoin topical 0.025% gel 1, applicator, Topically, 0, 0, 01/25/08 15:20:05, Print MARYANNE Number, Constant Indicator Start Date: 01/25/08 Status: Ordered Vitamin C 1000 mg oral tablet See Instructions, 2 tablet By Mouth Daily, 0 Refills, Maintenance, 12/12/16 11:12:11, Tablet Start Date: 12/12/16 Status: Ordered Problem List Condition Effective Dates Status Health Status Inform ant HTN (hypertension), benign(Confirmed) Active Fatigue(Confirmed) Active History of acute inferior wa ll myocardial infarction(Confirmed) Active Hormone replacement therapy (HRT)(Confirmed) Active Hypercholesteremia(Confirmed) Active Hypervitaminosis D(Confirmed) Active Lipoma of R shoulder(Confirmed) Active Menopause(Confirmed) Active Social History Social History Type Response Smoking Status Never (less than 100 in lifetime) entered on: 08/28/18 Sex
--- OUTSIDE RECORDS SUMMARY | 2023-11-26 08:15 | XMS_ITS | Continuity of Care Document ---
Author Organization [facility] Address [address] [place] [address]- Care Team Providers Care Salesperson Yard Goods Name Role Phone Briana FISHER, Derrick Jorge Primary Care Physician Encounter [facility] [place] Date(s): 07/26/19 - 09/02/19 [facility] [address] [place] [address]- [facility] Attending Physician: Cassandra Edwards MD Admitting Physician: Cassandra Edwards MD Allergies, Adverse Reactions, Alerts Substance Reaction Severity Status codeine Active Augmentin Active Medications Aspirin Chew Tablet 81, mg, Chew, Daily, 30, 11, 0, 11, 07/06/07 14:37:16, Print MARYANNE Number, ADS OPPTHS, [id number] Start Date: 07/06/07 Status: Ordered atenolol 50 mg oral tablet 50 mg, 1, tablet, By Mouth, Daily, # 90 tablet, Refills 1, Tot. Refills 1, Maintenance, 04/02/19 11:13:00 EST, Route to Pharmacy Electronically, [facility] #[id number], disregard order for 25 mg,152.4, cm, 03/22/19 10:01:00 EST, Height Start Date: 04/02/19 Status: Ordered Citracal Maximum + Vitamin D Tablet 2 tablet, By Mouth, 2 times a day, 0 Refills, Maintenance, 08/16/15 8:23:26 Start Date: 08/16/15 Status: Ordered Citracal Plus with Magnesium 1, tablet, By Mouth, Daily, 0, 0, 01/25/08 15:19:23, Print MARYANNE Number, [id number], Constant Indicator Start Date: 01/25/08 Status: Ordered femhrt 0.5 mg/2.5 mcg oral tablet 2 tablet, By Mouth, Daily, brand name only medically necessary, # 56 tablet, 13 Refills, Maintenance, 08/05/19 9:11:00 EDT, [facility] #[id number], 2 tablet By Mouth Daily,Instr:brand name only medically necessary, 152.4, cm, 03/22/19 10:01:00 EST... Start Date: 08/05/19 Status: Ordered Glucosamine 2000, By Mouth, Daily, 0 Refills, 01/25/08 15:19:39 EDT Start Date: 01/25/08 Status: Ordered metroNIDAZOLE 0.75% topical cream 1 applicator, Topically, 2 times a day, 0 Refills, Maintenance, 08/16/15 8:23:56 Start Date: 08/16/15 Status: Ordered Beautified Health 1 capsule, By Mouth, Daily, 0 [...]
--- OUTSIDE RECORDS SUMMARY | 2023-11-26 08:15 | XMS_ITS | Continuity of Care Document ---
Author Organization [facility] Address [address] [place] [address]- Care Team Providers Care Animal Care Giver Name Role Phone Briana FISHER, Derrick Jorge Primary Care Physician [phone] Encounter [facility] [place] Date(s): 05/26/20 - 09/23/20 [facility] [address] [place] [address]- Attending Physician: Cassandra Edwards MD Admitting Physician: Cassandra Edwards MD Referring Physician: Derrick Warren MD Allergies, Adverse Reactions, Alerts Substance Reaction Severity Status codeine Active Augmentin Active Immunizations Given and Recorded Vaccine Date Status Refusal Reason influenza virus vaccine, inactivated 02/01/20 Give n Medications Aspirin Chew Tablet 81, mg, Chew, Daily, 30, 11, 0, 11, 07/06/07 14:37:16, Print MARYANNE Number, ADS OPPTHS, [id number] Start Date: 07/06/07 Status: Ordered atenolol 50 mg oral tablet 50 mg, 1, tablet, By Mouth, Daily, # 90 tablet, Refills 0, Tot. Refills 0, Maintenance, 07/03/20 8:22:00 EDT, Route to Pharmacy Electronically, [facility] #[id number], disregard order for 25 mg, 152.4, cm, 02/01/20 10:58:00 EDT, Height Start Date: 07/03/20 Status: Ordered Citracal Maximum + Vitamin D Tablet 2 tablet, By Mouth, 2 times a day, 0 Refills, Maintenance, 08/16/15 8:23:26 Start Date: 08/16/15 Status: Ordered Citracal Plus with Magnesium 1, tablet, By Mouth, Daily, 0, 0, 01/25/08 15:19:23, Print MARYANNE Number, [id number], Constant Indicator Start Date: 01/25/08 Status: Ordered femhrt 0.5 mg/2.5 mcg oral tablet 2 tablet, By Mouth, Daily, brand name only medically necessary, # 56 tablet, 7 Refills, Maintenance, 07/14/20 11:04:00 EDT, [facility] #[id number], 2 tablet By Mouth Daily,Instr:brand name only medically necessary, 152, cm, 07/14/20 10:53:00 EDT,... Start Date: 07/14/20 Status: Ordered Glucosamine 2000, By Mouth, Daily, [...] Date: 07/27/20 Status: Ordered Problem List Condition Effective Dates Status Health Status Inform ant HTN (hypertension), benign(Confirmed) Active Coronary artery disease(Confirmed) Active Fatigue(Confirmed) Active History of acute inferior wa ll myocardial infarction(Confirmed) Active Hormone replacement therapy (HRT)(Confirmed) Active Hypercholesteremia(Confirmed) Active Hyperlipidemia(Confirmed) Active Hypervitaminosis D(Confirmed) Active Lipoma of R shoulder(Confirmed) Active Menopause(Confirmed) Active Social History Social History Type Response Smoking Status Never (less than 100 in lifetime) entered on: 08/28/18 Sex
--- OUTSIDE RECORDS SUMMARY | 2023-11-26 08:15 | XMS_ITS | Continuity of Care Document ---
Author Organization [facility] Address [address], [address] [place] [address]- Care Team Providers Care Steam Roller Operator Name Role Phone Derrick Warren MD Primary Care Physician [phone] Encounter [facility] [place] Date(s): 07/14/20 - 08/24/20 [facility] [address] [place] [address]- Attending Physician: Quang FISHER, Dean Morales Referring Physician: Derrick Warren MD Allergies, Adverse Reactions, Alerts Substance Reaction Severity Status codeine Active Augmentin Active Immunizations Given and Recorded Vaccine Date Status Refusal Reason influenza virus vaccine, inactivated 02/01/20 Give n Medications Aspirin Chew Tablet 81, mg, Chew, Daily, 30, 11, 0, 11, 07/06/07 14:37:16, Print MARYANNE Number, ADS OPPTHS, [id number] Start Date: 07/06/07 Status: Ordered atenolol 50 mg oral tablet 50 mg, 1, tablet, By Mouth, Daily, # 90 tablet, Refills 0, Tot. Refills 0, Maintenance, 07/03/20 8:22:00 EDT, Route to Pharmacy Electronically, [facility] #[id number], disregard order for 25 mg, 152.4, cm, 02/01/20 10:58:00 EDT, Height Start Date: 07/03/20 Status: Ordered Citracal Maximum + Vitamin D Tablet 2 tablet, By Mouth, 2 times a day, 0 Refills, Maintenance, 08/16/15 8:23:26 Start Date: 08/16/15 Status: Ordered Citracal Plus with Magnesium 1, tablet, By Mouth, Daily, 0, 0, 01/25/08 15:19:23, Print MARYANNE Number, [id number], Constant Indicator Start Date: 01/25/08 Status: Ordered femhrt 0.5 mg/2.5 mcg oral tablet 2 tablet, By Mouth, Daily, brand name only medically necessary, # 56 tablet, 7 Refills, Maintenance, 07/14/20 11:04:00 EDT, [facility] #[id number], 2 tablet By Mouth Daily,Instr:brand name only medically necessary, 152, cm, 07/14/20 10:53:00 EDT,... Start Date: 07/14/20 Status: Ordered Glucosamine 2000, By Mouth, Daily, 0 Refills, 01/25/08 15:19:39 EDT Start Date: 01/25/08 Status: Ordered metroNIDAZOLE 0.75% topical cream 1 applicator, Topically, 2 times a day, 0 Refills, Maintenance, 08/16/15 8:23:56 Start Date: 08/16/15 Status: Ordered [employer] Health 1 capsule, By Mouth, Daily, 0 [...]
--- OUTSIDE RECORDS SUMMARY | 2023-11-26 08:15 | XMS_ITS | Continuity of Care Document ---
Author Organization [facility] Address [address] [place] [address]- Care Team Providers Care Cribber Name Role Phone Derrick Warren MD Primary Care Physician [phone] Encounter [facility] [place] Date(s): 07/27/20 - 08/26/20 [facility] [address] [place] [id number] Attending Physician: Germaine Loera Admitting Physician: Admtr, [id number] Referring Physician: Admtr, [id number] Allergies, Adverse Reactions, Alerts Substance Reaction Severity Status codeine Active Augmentin Active Immunizations Given and Recorded Vaccine Date Status Refusal Reason influenza virus vaccine, inactivated 02/01/20 Give n Medications Aspirin Chew Tablet 81, mg, Chew, Daily, 30, 11, 0, 11, 07/06/07 14:37:16, Print MARYANNE Number, ADS OPPTHS, [id number] Start Date: 07/06/07 Status: Ordered atenolol 50 mg oral tablet 50 mg, 1, tablet, By Mouth, Daily, # 90 tablet, Refills 0, Tot. Refills 0, Maintenance, 07/03/20 8:22:00 EDT, Route to Pharmacy Electronically, [facility] #[id number], disregard order for 25 mg, 152.4, cm, 02/01/20 10:58:00 EDT, Height Start Date: 07/03/20 Status: Ordered Citracal Maximum + Vitamin D Tablet 2 tablet, By Mouth, 2 times a day, 0 Refills, Maintenance, 08/16/15 8:23:26 Start Date: 08/16/15 Status: Ordered Citracal Plus with Magnesium 1, tablet, By Mouth, Daily, 0, 0, 01/25/08 15:19:23, Print MARYANNE Number, [id number], Constant Indicator Start Date: 01/25/08 Status: Ordered femhrt 0.5 mg/2.5 mcg oral tablet 2 tablet, By Mouth, Daily, brand name only medically necessary, # 56 tablet, 7 Refills, Maintenance, 07/14/20 11:04:00 EDT, [facility] #[id number], 2 tablet By Mouth Daily,Instr:brand name only medically necessary, 152, cm, 07/14/20 10:53:00 EDT,... Start Date: 07/14/20 Status: Ordered Glucosamine 2000, By Mouth, Daily, 0 Refills, 01/25/08 15:19:39 EDT Start Date: 01/25/08 Status: Ordered metroNIDAZOLE 0.75% topical cream 1 applicator, Topically, 2 times a day, 0 Refills, Maintenance, 08/16/15 8:23:56 Start Date: 08/16/15 Status: Ordered [employer] 1 capsule, By Mouth, Daily, 0 [...]
--- OUTSIDE RECORDS SUMMARY | 2023-11-26 08:15 | XMS_ITS | Continuity of Care Document ---
Author Organization [facility] Address [address] [place] [phone]- Care Team Providers Care Hospital Aide Name Role Phone Machelle FISHER, Roldan Slater Primary Care Physician Encounter [facility] [place] Date(s): 02/20/23 - 03/22/23 [facility] [address] [place] [phone]- Attending Physician: Germaine Loera Admitting Physician: Germaine Loera Referring Physician: AdmtrGermaine Allergies, Adverse Reactions, Alerts Substance Reaction Severity Status codeine Active Augmentin Active Other Environmental Allergy Active Immunizations Given and Recorded Vaccine Date Status Refusal Reason influenza virus vaccine, inactivated 02/01/20 Give n Medications Aspirin Chew Tablet 81, mg, Chew, Daily, 30, 11, 0, 11, 07/06/07 14:37:16, Print MARYANNE Number, ADS OPPTHS, [id number] Start Date: 07/06/07 Status: Ordered atenolol 50 mg oral tablet 1, tablet, By Mouth, Daily, # 90 tablet, Refills 0, Route to Pharmacy Electronically, [facility] #[id number], 152, cm, 08/09/20 9:27:00 EDT, Height Start Date: 07/16/21 Status: Ordered Citracal Maximum + Vitamin D Tablet 2 tablet, By Mouth, 2 times a day, 0 Refills, Maintenance, 08/16/15 8:23:26 Start Date: 08/16/15 Status: Ordered Citracal Plus with Magnesium 1, tablet, By Mouth, Daily, 0, 0, 01/25/08 15:19:23, Print MARYANNE Number, [id number], Constant Indicator Start Date: 01/25/08 Status: Ordered [...] tablet, 2 Refills, Maintenance, 09/05/22 16:20:00 EDT, [facility] #[id number], 28, TAKE 1 TABLET BY MOUTH DAILY, [...] 08/16/15 8:23:56 Start Date: 08/16/15 Status: Ordered Dinosaur-3 Fish Oil = 1,000 mg, By Mouth, [...] 100 in lifetime) entered on: 08/28/18 Sex Laboratory * Event Display: Non Lab Results Authored Date: [id number] * Event Display: Non Lab Results Authored Date: [id number] Note * Joanne Hinojosa: PERFORM, SIGN, VERIFY Event Display: Patient Education/Instruction Authored Date: [id number] [facility] Clinical Summary Person Information Visit Date 12/12/2017 8:40 AM Name ROMI NOONAN Age 72 Years 1945 12:00 AM PCP Derrick Warren MD PCP Sex Female Race White Ethnicity Non-/Non- Language Indonesian You can now view a summary of your hospital visit from the comfort of your home through a free online portal called [employer]. [employer] is a website that allows you to securely view your medical information including discharge summary, medications and follow-up visits. You can also send a secure electronic message to your doctor???s office to request appointments, renew medicationsor just ask a question. You can enroll at [email or web address] or register during your next office visit. Smoking can increase your chances of developing chronic health problems and can cause harmful effects to other family members in your house. If you smoke, you are strongly encouraged to quit. Please call the [place] Smokers??? Helpline at 8-941-CZSJNOW (or ) or log on to [email or web address] for more information. The National Suicide Prevention Hotline is available 28/10 if you or someone you know needs to find a reason to keep living. By calling 1-885-074-LUVHAN (2653) you'll be connected to a skilled, trained counselor at a crisis center in your area. Reason for Visit: Allergy Info: Augmentin; codeine Smoking Status Never smoker Vital Signs Height Weight BMI Blood Pressure / Temperature Pulse Rate Respiratory Rate 02 Sat Mode of Delivery / Medication Information Ascorbic Acid (Vitamin C 1000 mg oral tablet) 2 tablet By Mouth Daily. Aspirin (Aspirin Chew Tablet) 81 Milligram Chew Daily. Refills: 11. Atenolol (Atenolol Tablet) 50 Milligram Oral Daily. bifidobacterium-lactobacillus (Crucell) 1 capsule Oral Daily. Calcium And Vitamin D Combination (Citracal Maximum + Vitamin D Tablet) 2 tab(s) Oral twice a day. Ethinyl Estradiol / Norethindrone (femhrt 0.5 mg/2.5 mcg oral tablet) 2 tab(s) Oral Daily. brand name only medically necessary. Refills: 14. Glucosamine 2000 Oral Daily. Metronidazole Topical (metroNIDAZOLE 0.75% topical cream) Topically twice a day. Multivitamin Daily. Multivitamin With Minerals (Citracal Plus with Magnesium) 1 tab(s) Oral Daily. Tretinoin Topical (tretinoin topical 0.025% gel) Topically. Future Orders No future orders Orders Completed this Visit No visit orders documented Problem List Problem Menopause Benign hypertension Hypercholesterolemia Hormone replacement therapy requested Lipoma (clinical) History of myocardial infarction Diagnosis Procedures No Procedures Documented If the following labs have been performed in the last year, the most recent result is displayed below. Diagnostic Results Lab Result Value Date Lead Hemoglobin A1C 5.4 12/16/16 LDL 105 06/10/17 HDL 45 06/10/17 Triglycerides 178 06/10/17 Total Cholesterol 186 06/10/17 Disclaimer: The information provided is of a general nature and is intended to be used in conjunction with the recommendations and advice of your health care practitioner. Every effort has been made to ensure that the information provided is accurate and complete at the time it is provided to you however, as your needs change, or, as new information becomes available, different or additional instructions may be required. If you have questions, please consult with your primary care provider or pharmacist, as appropriate. This information is not intended to serve as substitution for assessment and evaluation by a qualified health care provider. If you do not have a primary care provider, you may find a [facility] provider by calling [facility] at [phone]. For information about the plan of care including goals and instructions for your diagnosis, please see the patient education orders section of this document. Patient Visit Summary: Future Appointments: Follow-Up Instructions Patient Education Materials Additional Instructions: * Joanne Hinojosa: PERFORM, SIGN, VERIFY Event Display: Patient Education/Instruction Authored Date: [id number] [facility] Clinical Summary Person Information Visit Date 12/12/2017 8:40 AM Name ROMI NOONAN Age 72 Years 1945 12:00 AM PCP Derrick Warren MD PCP Sex Female Race White Ethnicity Non-/Non- Language Indonesian You can now view a summary of your hospital visit from the comfort of your home through a free online portal called [employer]. [employer] is a website that allows you to securely view your medical information including discharge summary, medications and follow-up visits. You can also send a secure electronic message to your doctor???s office to request appointments, renew medicationsor just ask a question. You can enroll at [email or web address] or register during your next office visit. Smoking can increase your chances of developing chronic health problems and can cause harmful effects to other family members in your house. If you smoke, you are strongly encouraged to quit. Please call the [place] Smokers??? Helpline at 3-052-QAYYNOW (or ) or log on to [email or web address] for more information. The National Suicide Prevention Hotline is available 28/10 if you or someone you know needs to find a reason to keep living. By calling 2-038-610-vhww (3813) you'll be connected to a skilled, trained counselor at a crisis center in your area. Reason for Visit: Allergy Info: Augmentin; codeine Smoking Status Never smoker Vital Signs Height Weight BMI Blood Pressure / Temperature Pulse Rate Respiratory Rate 02 Sat Mode of Delivery / Medication Information Ascorbic Acid (Vitamin C 1000 mg oral tablet) 2 tablet By Mouth Daily. Aspirin (Aspirin Chew Tablet) 81 Milligram Chew Daily. Refills: 11. Atenolol (Atenolol Tablet) 50 Milligram Oral Daily. bifidobacterium-lactobacillus (Crucell) 1 capsule Oral Daily. Calcium And Vitamin D Combination (Citracal Maximum + Vitamin D Tablet) 2 tab(s) Oral twice a day. Ethinyl Estradiol / Norethindrone (femhrt 0.5 mg/2.5 mcg oral tablet) 2 tab(s) Oral Daily. brand name only medically necessary. Refills: 14. Glucosamine 2000 Oral Daily. Metronidazole Topical (metroNIDAZOLE 0.75% topical cream) Topically twice a day. Multivitamin Daily. Multivitamin With Minerals (Citracal Plus with Magnesium) 1 tab(s) Oral Daily. Tretinoin Topical (tretinoin topical 0.025% gel) Topically. Future Orders No future orders Orders Completed this Visit No visit orders documented Problem List Problem Menopause Benign hypertension Hypercholesterolemia Hormone replacement therapy requested Lipoma (clinical) History of myocardial infarction Diagnosis Procedures No Procedures Documented If the following labs have been performed in the last year, the most recent result is displayed below. Diagnostic Results Lab Result Value Date Lead Hemoglobin A1C 5.4 12/16/16 LDL 105 06/10/17 HDL 45 06/10/17 Triglycerides 178 06/10/17 Total Cholesterol 186 06/10/17 Disclaimer: The information provided is of a general nature and is intended to be used in conjunction with the recommendations and advice of your health care practitioner. Every effort has been made to ensure that the information provided is accurate and complete at the time it is provided to you however, as your needs change, or, as new information becomes available, different or additional instructions may be required. If you have questions, please consult with your primary care provider or pharmacist, as appropriate. This information is not intended to serve as substitution for assessment and evaluation by a qualified health care provider. If you do not have a primary care provider, you may find a [facility] provider by calling [facility] at [phone]. For information about the plan of care including goals and instructions for your diagnosis, please see the patient education orders section of this document. Patient Visit Summary: Future Appointments: Follow-Up Instructions Patient Education Materials Additional Instructions: Patient Care team information Care Team Personnel Name: Roldan Carty MD Position: [facility] Outreach Member Role: PCP Address: Address: [address] [place] [id number]- Name: Quang FISHER, Dean Morales Position: [facility] [employer] Member Role: [employer] Physician Address: Address: [address] [place] [address] [place] [address]- Care Team Related Persons Name: IHSAN NOONAN Address: [address] [address]
--- OUTSIDE RECORDS SUMMARY | 2023-11-26 08:15 | XMS_ITS | Continuity of Care Document ---
Author Organization [facility] Address [address] [place] [phone]- Care Team Providers Care Quality Improvement Consultant Name Role Phone Derrick Warren MD Primary Care Physician Encounter [facility] [place] [place] Date(s): 12/30/18 - 04/24/19 [facility] [address] [place] [phone] [facility] Attending Physician: Cassandra Edwards MD Admitting Physician: Cassandra Edwards MD Referring Physician: Derrick Warren MD Allergies, Adverse Reactions, Alerts Substance Reaction Severity Status codeine Active Augmentin Active Medications Aspirin Chew Tablet 81, mg, Chew, Daily, 30, 11, 0, 11, 07/06/07 14:37:16, Print MARYANNE Number, ADS OPPTHS, [id number] Start Date: 07/06/07 Status: Ordered atenolol 50 mg oral tablet 50 mg, 1, tablet, By Mouth, Daily, # 90 tablet, Refills 1, Tot. Refills 1, Maintenance, 04/02/19 11:13:00 EST, Route to Pharmacy Electronically, [facility] #[id number], disregard order for 25 mg,152.4, cm, 03/22/19 10:01:00 EST, Height Start Date: 04/02/19 Status: Ordered Citracal Maximum + Vitamin D Tablet 2 tablet, By Mouth, 2 times a day, 0 Refills, Maintenance, 08/16/15 8:23:26 Start Date: 08/16/15 Status: Ordered Citracal Plus with Magnesium 1, tablet, By Mouth, Daily, 0, 0, 01/25/08 15:19:23, Print MARYANNE Number, [id number], Constant Indicator Start Date: 01/25/08 Status: Ordered [...]
--- OUTSIDE RECORDS SUMMARY | 2023-11-26 08:15 | XMS_ITS | Continuity of Care Document ---
Author Organization [facility] Address [address], [address] [place] [address]- Care Team Providers Care Milking Machine Operator Name Role Phone Briana FISHER, Derrick Jorge Primary Care Physician [phone] Encounter [facility] [place] Date(s): 06/03/19 - 10/01/19 [facility] [address] [place] [address]- [facility] Attending Physician: Quang FISHER, Dean Morales Allergies, Adverse Reactions, Alerts Substance Reaction Severity Status codeine Active Augmentin Active Medications Aspirin Chew Tablet 81, mg, Chew, Daily, 30, 11, 0, 11, 07/06/07 14:37:16, Print MARYANNE Number, ADS OPPTHS, [id number] Start Date: 07/06/07 Status: Ordered atenolol 50 mg oral tablet 50 mg, 1, tablet, By Mouth, Daily, # 90 tablet, Refills 1, Tot. Refills 1, Maintenance, 10/01/19 9:01:00 EDT, Route to Pharmacy Electronically, [facility] #[id number], disregard order for 25 mg, 152.4, cm, 03/22/19 10:01:00 EST, Height Start Date: 10/01/19 Status: Ordered Citracal Maximum + Vitamin D Tablet 2 tablet, By Mouth, 2 times a day, 0 Refills, Maintenance, 08/16/15 8:23:26 Start Date: 08/16/15 Status: Ordered Citracal Plus with Magnesium 1, tablet, By Mouth, Daily, 0, 0, 01/25/08 15:19:23, Print MARYANNE Number, [id number], Constant Indicator Start Date: 01/25/08 Status: Ordered femhrt 0.5 mg/2.5 mcg oral tablet 2 tablet, By Mouth, Daily, brand name only medically necessary, # 56 tablet, 13 Refills, Maintenance, 08/05/19 9:11:00 EDT, [facility] #[id number], 2 tablet By Mouth Daily,Instr:brand name only medically necessary, 152.4, cm, 03/22/19 10:01:00 EST... Start Date: 08/05/19 Status: Ordered Glucosamine 2000, By Mouth, Daily, 0 Refills, 01/25/08 15:19:39 EDT Start Date: 01/25/08 Status: Ordered metroNIDAZOLE 0.75% topical cream 1 applicator, Topically, 2 times a day, 0 Refills, Maintenance, 08/16/15 8:23:56 Start Date: 08/16/15 Status: Ordered [employer] 1 capsule, By Mouth, Daily, 0 [...]
--- OUTSIDE RECORDS SUMMARY | 2023-11-26 08:15 | XMS_ITS | Continuity of Care Document ---
Author Organization [facility] Address [address] [place] [address]- Care Team Providers Care Underground Supervisor Name Role Phone Briana FISHER, Derrick Jorge Primary Care Physician Encounter [facility] [place] Date(s): 08/05/19 - 08/12/19 [facility] [address] [place] [id number]- [facility] Attending Physician: Jerry FISHER, Cassandra Chappell Referring Physician: Derrick Warren MD Allergies, Adverse Reactions, Alerts Substance Reaction Severity Status codeine Active Augmentin Active Medications Aspirin Chew Tablet 81, mg, Chew, Daily, 30, 11, 0, 11, 07/06/07 14:37:16, Print MARYANNE Number, ADS OPPTHS, [id number] Start Date: 07/06/07 Status: Ordered atenolol 50 mg oral tablet 50 mg, 1, tablet, By Mouth, Daily, # 90 tablet, Refills 1, Tot. Refills 1, Maintenance, 04/02/19 11:13:00 EST, Route to Pharmacy Electronically, [facility] #[id number], disregard order for 25 mg,152.4, cm, 03/22/19 10:01:00 EST, Height Start Date: 04/02/19 Status: Ordered Citracal Maximum + Vitamin D Tablet 2 tablet, By Mouth, 2 times a day, 0 Refills, Maintenance, 08/16/15 8:23:26 Start Date: 08/16/15 Status: Ordered Citracal Plus with Magnesium 1, tablet, By Mouth, Daily, 0, 0, 01/25/08 15:19:23, Print MARYANNE Number, [id number], Constant Indicator Start Date: 01/25/08 Status: Ordered femhrt 0.5 mg/2.5 mcg oral tablet 2 tablet, By Mouth, Daily, brand name only medically necessary, # 56 tablet, 13 Refills, Maintenance, 08/05/19 9:11:00 EDT, [facility] #[id number], 2 tablet By Mouth Daily,Instr:brand name only medically necessary, 152.4, cm, 03/22/19 10:01:00 EST... Start Date: 08/05/19 Status: Ordered Glucosamine 2000, By Mouth, Daily, 0 Refills, 01/25/08 15:19:39 EDT Start Date: 01/25/08 Status: Ordered metroNIDAZOLE 0.75% topical cream 1 applicator, Topically, 2 times a day, 0 Refills, Maintenance, 08/16/15 8:23:56 Start Date: 08/16/15 Status: Ordered [employer] 1 capsule, By Mouth, Daily, 0 [...]
--- OUTSIDE RECORDS SUMMARY | 2023-11-26 08:15 | XMS_ITS | Continuity of Care Document ---
Author Organization [facility] Address [address] [address] [facility] [place] [address]- Care Team Providers Care Sales And Service Associate Name Role Phone Briana FISHER, Derrick Jorge Primary Care Physician [phone] Encounter [facility] [place] Date(s): 07/25/20 - 08/24/20 [facility] [place] [address] [facility] [place] [address]- Attending Physician: Germaine Loera Admitting Physician: Germaine Loera Referring Physician: AdmtrGermaine Allergies, Adverse Reactions, Alerts Substance Reaction Severity Status codeine Active Augmentin Active Immunizations Given and Recorded Vaccine Date Status Refusal Reason influenza virus vaccine, inactivated 02/01/20 Give n Medications Aspirin Chew Tablet 81, mg, Chew, Daily, 30, 11, 0, 11, 07/06/07 14:37:16, Print MARYANNE Number, ADS OPPT, [id number] Start Date: 07/06/07 Status: Ordered atenolol 50 mg oral tablet 50 mg, 1, tablet, By Mouth, Daily, # 90 tablet, Refills 0, Tot. Refills 0, Maintenance, 07/03/20 8:22:00 EDT, Route to Pharmacy Electronically, [facility] #[id number], disregard order for 25 mg, 152.4, cm, 02/01/20 10:58:00 EDT, Height Start Date: 07/03/20 Status: Ordered Citracal Maximum + Vitamin D Tablet 2 tablet, By Mouth, 2 times a day, 0 Refills, Maintenance, 08/16/15 8:23:26 Start Date: 08/16/15 Status: Ordered Citracal Plus with Magnesium 1, tablet, By Mouth, Daily, 0, 0, 01/25/08 15:19:23, Print MARYANNE Number, [id number], Constant Indicator Start Date: 01/25/08 Status: Ordered femhrt 0.5 mg/2.5 mcg oral tablet 2 tablet, By Mouth, Daily, brand name only medically necessary, # 56 tablet, 7 Refills, Maintenance, 07/14/20 11:04:00 EDT, [facility] #[id number], 2 tablet By Mouth Daily,Instr:brand name only medically necessary, 152, cm, 07/14/20 10:53:00 EDT,... Start Date: 07/14/20 Status: Ordered Glucosamine 2000, By Mouth, Daily, 0 Refills, 01/25/08 15:19:39 EDT Start Date: 01/25/08 Status: Ordered metroNIDAZOLE 0.75% topical cream 1 applicator, Topically, 2 times a day, 0 Refills, Maintenance, 08/16/15 8:23:56 Start Date: 08/16/15 Status: Ordered [employer] 1 capsule, By Mouth, Daily, 0 [...]
--- OUTSIDE RECORDS SUMMARY | 2023-11-26 08:15 | XMS_ITS | Continuity of Care Document ---
Author Organization [facility] Address [address] [place] [address]- Care Team Providers Care Marbleizing Machine Tender Name Role Phone Machelle FISHER, Roldan Slater Primary Care Physician Encounter [facility] [place] Date(s): 09/26/22 - 10/26/22 [facility] [address] [place] [address]- Attending Physician: Germaine Loera Admitting Physician: Germaine Loera Referring Physician: AdmtrGermaine Allergies, Adverse Reactions, Alerts Substance Reaction Severity Status codeine Active Augmentin Active Other Environmental Allergy Active Immunizations Given and Recorded Vaccine Date Status Refusal Reason influenza virus vaccine, inactivated 02/01/20 Give n Medications Aspirin Chew Tablet 81, mg, Chew, Daily, 30, 11, 0, 11, 07/06/07 14:37:16, Print MARYANNE Number, ADS OPPTHS, [id number] Start Date: 07/06/07 Status: Ordered atenolol 50 mg oral tablet 1, tablet, By Mouth, Daily, # 90 tablet, Refills 0, Route to Pharmacy Electronically, [facility] #[id number], 152, cm, 08/09/20 9:27:00 EDT, Height Start Date: 07/16/21 Status: Ordered Citracal Maximum + Vitamin D Tablet 2 tablet, By Mouth, 2 times a day, 0 Refills, Maintenance, 08/16/15 8:23:26 Start Date: 08/16/15 Status: Ordered Citracal Plus with Magnesium 1, tablet, By Mouth, Daily, 0, 0, 01/25/08 15:19:23, Print MARYANNE Number, [id number], Constant Indicator Start Date: 01/25/08 Status: Ordered [...] Maintenance, 09/05/22 16:20:00 EDT, [facility] #[id number], 28, TAKE 1 TABLET BY MOUTH DAILY, [...] 08/16/15 8:23:56 Start Date: 08/16/15 Status: Ordered Gaffney-3 Fish Oil = 1,000 mg, By Mouth, [...] Event Display: Non Lab Results Authored Date: [id number] * Event Display: Non Lab Results Authored Date: [id number] Note * Joanne Hinojosa: PERFORM, SIGN, VERIFY Event Display: Patient Education/Instruction Authored Date: [id number] [facility] Card[facility]1 Clinical Summary Person Information Visit Date 12/12/2017 8:40 AM Name ROMI NOONAN Age 72 Years 1945 12:00 AM PCP Derrick Warren MD PCP Sex Female Race White Ethnicity Non-/Non- Language Haitian You can now view a summary of your hospital visit from the comfort of your home through a free online portal called Recognia. Recognia is a website that allows you to securely view your medical information including discharge summary, medications and follow-up visits. You can also send a secure electronic message to your doctor???s office to request appointments, renew medicationsor just ask a question. You can enroll at [email or web address] or register during your next office visit. Smoking can increase your chances of developing chronic health problems and can cause harmful effects to other family members in your house. If you smoke, you are strongly encouraged to quit. Please call the [place] Smokers??? Helpline at 8-867-KCYQNOW (or ) or log on to [email or web address] for more information. The National Suicide Prevention Hotline is available 28/10 if you or someone you know needs to find a reason to keep living. By calling 1-972-798-Death by Party (5333) you'll be connected to a skilled, trained [...] (Atenolol Tablet) 50 Milligram Oral Daily. bifidobacterium-lactobacillus ([employer]) 1 capsule Oral Daily. Calcium And Vitamin [...] primary care provider, you may find a [facility] provider by calling [facility] [place] at [phone]. For information about the plan of care including goals and instructions for your diagnosis, please see the patient education orders section of this document. Patient Visit Summary: Future Appointments: Follow-Up Instructions Patient Education Materials Additional Instructions: * Joanne Hinojosa: PERFORM, SIGN, VERIFY Event Display: Patient Education/Instruction Authored Date: [id number] [facility] Cardiology1 Clinical Summary Person Information Visit Date 12/12/2017 8:40 AM Name ROMI NOONAN Age 72 Years 1945 12:00 AM PCP Derrick Warren MD PCP Sex Female Race White Ethnicity Non-/Non- Language Haitian You can now view a summary of your hospital visit from the comfort of your home through a free online portal called Recognia. Recognia is a website that allows you to securely view your medical information including discharge summary, medications and follow-up visits. You can also send a secure electronic message to your doctor???s office to request appointments, renew medicationsor just ask a question. You can enroll at [email or web address] or register during your next office visit. Smoking can increase your chances of developing chronic health problems and can cause harmful effects to other family members in your house. If you smoke, you are strongly encouraged to quit. Please call the [place] Smokers??? Helpline at 2-745-JSRGNOW (or ) or log on to [email or web address] for more information. The National Suicide Prevention Hotline is available 28/10 if you or someone you know needs to find a reason to keep living. By calling 8-164-793-dfdy (7485) you'll be connected to a skilled, trained [...] (Atenolol Tablet) 50 Milligram Oral Daily. bifidobacterium-lactobacillus ([employer]) 1 capsule Oral Daily. Calcium And Vitamin [...] primary care provider, you may find a [facility] provider by calling [facility] at [phone]. For information about the plan of care including goals and instructions for your diagnosis, please see the patient education orders section of this document. Patient Visit Summary: Future Appointments: Follow-Up Instructions Patient Education Materials Additional Instructions: Patient Care team information Care Team Personnel Name: Roldan Carty MD Position: [facility] Outreach Member Role: PCP Address: Address: [address] [place] [address]- Name: Quang FISHER, Dean Morales Position: [facility] PRESS LOADER Member Role: Lifetime PRESS LOADER Physician Address: Address: [address] [place] [address] Women's [place] [address]- Care Team Related Persons Name: IHSAN NOONAN Address: [address] [address]
--- OUTSIDE RECORDS SUMMARY | 2023-11-26 08:15 | XMS_ITS | Continuity of Care Document ---
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 Role Phone Derrick Warren MD Primary Care Physician En[place] [facility] [place] Date(s): 09/01/19 - 10/01/19 [facility] [address] [facility], [address] [place] [address]- [facility] Attending Physician: AdmGermaine rodriguez Admitting Physician: AdmtrGermaine Referring Physician: Admtr, Germaine Allergies, Adverse Reactions, Alerts Substance Reaction Severity Status codeine Active Augmentin Active Medications Aspirin Chew Tablet 81, mg, Chew, Daily, 30, 11, 0, 11, 07/06/07 14:37:16, Print MARYANNE Number, ADS OPPTHS, [id number] Start Date: 07/06/07 Status: Ordered atenolol 50 mg oral tablet 50 mg, 1, tablet, By Mouth, Daily, # 90 tablet, Refills 1, Tot. Refills 1, Maintenance, 10/01/19 9:01:00 EDT, Route to Pharmacy Electronically, [facility] #[id number], disregard order for 25 mg, 152.4, cm, 03/22/19 10:01:00 EST, Height Start Date: 10/01/19 Status: Ordered Citracal Maximum + Vitamin D Tablet 2 tablet, By Mouth, 2 times a day, 0 Refills, Maintenance, 08/16/15 8:23:26 Start Date: 08/16/15 Status: Ordered Citracal Plus with Magnesium 1, tablet, By Mouth, Daily, 0, 0, 01/25/08 15:19:23, Print MARYANNE Number, [id number], Constant Indicator Start Date: 01/25/08 Status: Ordered femhrt 0.5 mg/2.5 mcg oral tablet 2 tablet, By Mouth, Daily, brand name only medically necessary, # 56 tablet, 13 Refills, Maintenance, 08/05/19 9:11:00 EDT, [facility] #[id number], 2 tablet By Mouth Daily,Instr:brand name only medically necessary, 152.4, cm, 03/22/19 10:01:00 EST... Start Date: 08/05/19 Status: Ordered Glucosamine 2000, By Mouth, Daily, 0 Refills, 01/25/08 15:19:39 EDT Start Date: 01/25/08 Status: Ordered metroNIDAZOLE 0.75% topical cream 1 applicator, Topically, 2 times a day, 0 Refills, Maintenance, 08/16/15 8:23:56 Start Date: 08/16/15 Status: Ordered Play2Focus Health 1 capsule, By Mouth, Daily, 0 [...]
--- OUTSIDE RECORDS SUMMARY | 2023-11-26 08:15 | XMS_ITS | Continuity of Care Document ---
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 Role Phone Briana FISHER, Derrick Jorge Primary Care Physician [phone] [place] [facility] [place]07[place] - 09/04/19 [facility] [address] [place] [address]- [facility] Attending Physician: Cassandra Edwards MD Admitting Physician: Cassandra Edwards MD Allergies, Adverse Reactions, Alerts Substance Reaction Severity Status codeine Active Augmentin Active Medications Aspirin Chew Tablet 81, mg, Chew, Daily, 30, 11, 0, 11, 07/06/07 14:37:16, Print MARYANNE Number, ADS OPPTHS, [id number] Start Date: 07/06/07 Status: Ordered atenolol 50 mg oral tablet 50 mg, 1, tablet, By Mouth, Daily, # 90 tablet, Refills 1, Tot. Refills 1, Maintenance, 04/02/19 11:13:00 EST, Route to Pharmacy Electronically, [facility] #[id number], disregard order for 25 mg,152.4, cm, 03/22/19 10:01:00 EST, Height Start Date: 04/02/19 Status: Ordered Citracal Maximum + Vitamin D Tablet 2 tablet, By Mouth, 2 times a day, 0 Refills, Maintenance, 08/16/15 8:23:26 Start Date: 08/16/15 Status: Ordered Citracal Plus with Magnesium 1, tablet, By Mouth, Daily, 0, 0, 01/25/08 15:19:23, Print MARYANNE Number, [id number], Constant Indicator Start Date: 01/25/08 Status: Ordered femhrt 0.5 mg/2.5 mcg oral tablet 2 tablet, By Mouth, Daily, brand name only medically necessary, # 56 tablet, 13 Refills, Maintenance, 08/05/19 9:11:00 EDT, [facility] #[id number], 2 tablet By Mouth Daily,Instr:brand name only medically necessary, 152.4, cm, 03/22/19 10:01:00 EST... Start Date: 08/05/19 Status: Ordered Glucosamine 2000, By Mouth, Daily, 0 Refills, 01/25/08 15:19:39 EDT Start Date: 01/25/08 Status: Ordered metroNIDAZOLE 0.75% topical cream 1 applicator, Topically, 2 times a day, 0 Refills, Maintenance, 08/16/15 8:23:56 Start Date: 08/16/15 Status: Ordered [employer]it Health 1 capsule, By Mouth, Daily, 0 [...]
== END 2023-11-25 14:10 | disposition home or self-care (01) ==
PROVIDERS: PCP Family Medicine; Visit Provider Family Medicine
DX: L23.9 Allergic contact dermatitis, unspecified cause (principal); E78.5 Hyperlipidemia, unspecified; F41.9 Anxiety disorder, unspecified
CPT/HCPCS: 99214

== ENCOUNTER 2024-02-26 13:09 | Outpatient (AMB) | payer MEDICARE, SELFPAY ==
--- NOTE | 2024-02-26 13:24 | MHC.PC.OV ---
Vital Signs 02/26/24 13:32 02/26/24 13:36 Height 5 ft 1 in Weight 135 lb 8 oz BMI 25.6 BP 140/70 H 110/68 Blood Pressure Location Rt brachial Rt brachial Position Sitting Sitting Respiration 16 Pulse 101 H Pulse Source Pulse Oximeter Temp 98.0 F Temp Source Oral Pulse Oximetry (%) 96 Oxygen Delivery Method Room Air Intake Visit Reasons: f/u anxiety Intake Note: f/u for anxiety Allergies soy Allergy (Severe, Verified 02/26/24 13:31) Hives amoxicillin [From Augmentin] Allergy (Unknown, Verified 02/26/24 13:31) Rash clavulanic acid [From Augmentin] Allergy (Unknown, Verified 02/26/24 13:31) Rash Seasonal Allergies Allergy (Unknown, Verified 02/26/24 13:31) Unknown codeine Allergy (Verified 02/26/24 13:31) Unknown Tobacco use date assessed: 07/14/23 Dental Screening Dental Screen Date: 07/14/23 HPI f/u anxiety HPI Details Patient?scheduled?for?follow-up?anxiety/stress however?she?says?that?she?has?not?had?a?physical?and?wants?a?physical?today Still?has?ongoing?rash?primarily?at?upper?torso.??Patient?has?said?that?she?has?had?a?longstanding?lipoma?at?her?right?shoulder?for?many?years.?? She?says?that?[facility]telling[facility]her?that?she?has?a?lymphoma?there.??She?says?that he?has?recommended?PET?scanning?but?she?is?declining?this.??She?says?she?is?currently?at?it?stands?though?with?him?as?he?does?not?want?to?move?forward?with?removal?until?gets?PET?scan.??I?do?not?have?any?notes?from?this?specialist?and?have?requested. Patient?has?been?complaining?of?a?rash?on?upper?torso?for?the?past?several?months. ?Had?tried?areas?medications?and?creams?but?this?has?not?resolved. Had?referred?her?to?immunology?and?Dermatology. She?uses?Amber?and?also?moisturizing?creams?for?this.??Patient?says?this?started?when?she?began?using?red?yeast?rice?and?blames?soy?content in it for her?rash Patient?also?notes?some?ongoing?stress?but?declines?therapy?or?medications?for?this. [facility] Medical History History of COVID-19 Hx of myocardial infarction Hx of coronary artery disease Surgical History History of angioplasty Family History Mother No problems noted. Father No problems noted. Social History Housing: House Patient Tobacco Use Status: Never used Tobacco e-Cigarette/Vaping Use: Never Used Second Hand Smoke Exposure: No service: No Current occupational status: retired Current occupational exposures/hazards: No Cognitive needs: No Hearing needs: No Vision needs: No Questionnaire PHQ-9 Over the last 2 weeks, how often have you been bothered by any of the following problems? 1. Little interest or pleasure in doing things: not at all 2. Feeling down, depressed, or hopeless: nearly every day 3. Trouble falling or staying asleep, or sleeping too much: more than half the days 4. Feeling tired or having little energy: nearly every day 5. Poor appetite or overeating: nearly every day 6. Feeling bad about yourself - or that you are a failure or have let yourself or your family down: nearly every day 7. Trouble concentrating on things, such as reading the newspaper or watching television: not at all 8. Moving or speaking so slowly that other people could have noticed. Or the opposite - being so fidgety or restless that you have been moving around a lot more than usual: not at all 9. Thoughts that you would be better off or of hurting yourself in some way: not at all Total score: 14 Depression Screening Interpretation: Positive Depression Screening Done: Yes 15191 - PHQ-9 Billing: Yes Source: Developed by Drs. Yusef Luque, Carmen Wooten, Onel Galeas and colleagues, with an educational evette from [employer]. Thrive Questionnaire Date Thrive assessed: 02/26/24 I am a: Patient What is your living situation today?: I choose not to answer this question Within the past 12 months, did the food you bought not last and you didn't have the money to get more?: I choose not to answer this question Within the past 12 months, did you worry whether your food would run out before you got money to buy more?: I choose not to answer this question Do you have trouble paying for medicines?: I choose not to answer this question Do you have trouble getting transportation to medical appointments?: I choose not to answer this question Do you have trouble paying your heating and electricity bill?: I choose not to answer this question Do you have trouble taking care of your child, family member or friend?: I choose not to answer this question Do you have trouble with day-to-day activities such as bathing, preparing meals, shopping, managing finances, etc.?: I choose not to answer this question Are you currently unemployed and looking for a job?: I choose not to answer this question Are you interested in more education?: I choose not to answer this question Please select the resources that you would like help with: None Currently or been in a relationship where the following occur: No concerns reported THRIVE Score: 0 CECY-7 AMB Questionnaire CECY-7 Date CECY - 7 assessed: 02/26/24 Feeling nervous, anxious, or on edge: 3 = Nearly every day Not being able to stop or control worryin = Nearly every day Worrying too much about different things: 0 = Not at all Trouble relaxin = Not at all Being so restless that it is hard to sit still: 0 = Not at all Becoming easily annoyed or irritable: 3 = Nearly every day Feeling afraid as if something awful might happen: 1 = Several days Total CECY-7 score (0-4 normal; 5-9 mild; 10-14 moderate; 15-21 severe): 10 Source: Developed by Drs. Yusef Luque, Carmen Wooten, Onel Galeas and colleagues, with an educational evette from [employer]. CECY-7 Assessment Billing CECY-7 Assessment Tool: CECY-7 Assessment 65928 Review of Systems Const Denies chills, Denies fatigue, Denies fever(s), Denies headache(s) and Denies weakness Eyes Denies change in vision ENT Denies dizziness, Denies headache(s), Denies hearing loss, Denies nasal congestion, Denies sinus pain, Denies sinus pressure and Denies sore throat Card Denies chest pain, Denies lightheadedness, Denies dyspnea and Denies other (palpitations) Resp Denies cough, Denies dyspnea and Denies wheezing GI Denies abdominal pain, Denies melena, Denies hematochezia, Denies change in bowel habits, Denies dyspepsia and Denies nausea Denies hematuria and Denies dysuria Musc Denies abnormal gait, Denies myalgias, Denies arthralgias, Denies numbness and Denies tingling Skin/Breast Details: Mass at R shoulder Reports rash, Denies unusual bruising and Denies wounds Neuro Denies abnormal gait, Denies dizziness, Denies headache(s), Denies memory loss, Denies numbness, Denies Sensory deficit (Neuro), Denies tingling and Denies weakness Psych Denies anxiety, Denies depression and Denies memory loss Endo Denies cold intolerance, Denies fatigue, Denies heat intolerance, Denies polydipsia and Denies polyuria Kamran/Lymph Denies easy bleeding and Denies easy bruising Aller/Immun Denies wheezing Physical exam (Primary Care) Vital Signs: Last Vital Signs Temp 98.0 F 02/26/24 13:32 Pulse 101 H 02/26/24 13:32 Resp 16 02/26/24 13:32 BP 110/68 02/26/24 13:36 Pulse Ox 96 02/26/24 13:32 Oxygen Delivery Method Room Air 02/26/24 13:32 BMI result Body Mass Index 25.6 Tobacco/Smoking Status: Tobacco use Status Tobacco use date assessed 07/14/23 02/26/24 13:38 Patient Tobacco Use Status Never used Tobacco 02/26/24 13:38 e-Cigarette/Vaping Use Never Used 02/26/24 13:38 PHQ-9: PHQ-9 Score PHQ-9: Total score 14 02/26/24 13:38 Depression Screening Interpretation: Positive Thrive Assessment: Date of Thrive Assessment Date Thrive assessed 02/26/24 02/26/24 13:38 Currently or been in a relationship where the following occur: No concerns reported Const General: no acute distress, well developed, alert and awake Nutritional Appearance: well nourished Orientation/consciousness: patient oriented x3 [facility] Head: Yes normocephalic and Yes atraumatic Ears: hearing grossly normal bilaterally and TM's normal bilaterally General nose exam: Normal external nose present and Normal nares present Mouth: Normal oral and palatal mucosa present and moist mucous membranes Teeth and gingiva: dentition normal Throat: Yes posterior oropharynx normal Eyes Pupils: Equal, round and reactive pupils present and Pupil accommodation reflex normal EOM: EOMs intact bilaterally Neck Neck: Yes normal visual inspection, Yes no lymphadenopathy and Yes trachea midline Thyroid: Thyroid normal Carotids: no bruits Lymphatic: no lymphadenopathy noted Chest Chest palpation & inspection: normal inspection of the chest Resp Effort & Inspection: normal respiratory effort Auscultation: clear to auscultation bilaterally Cardio Rate: regular rate Rhythm: regular rhythm Heart sounds: S1 normal heart sound present, S2 normal heart sound present, no gallops, no murmurs and no rubs Bruits: no abdominal aortic bruits and no carotid bruits GI Palpation (GI): No Abdominal aortic bruit present, Soft to palpation, nontender, No hepatosplenomegaly present and No Rebound tenderness present Auscultation: normal bowel sounds General: Yes no CVA tenderness Back/Spine/Pelvis Back: no CVA tenderness Cervical Spine: cervical ROM normal and No Cervical spine tenderness Thoracic/Lumbar Spine: thoraco-lumbar ROM normal, No pain with thoraco-lumbar ROM, No thoracic spinal tenderness and No lumbar spinal tenderness Skin Lesions: no lesions Rashes: no rashes (Rash on torso & arms) Trauma: no lacerations or abrasions Wounds: no wounds Nails: normal Neuro General: patient oriented x3, gait normal and CN's II-XI intact bilaterally Cranial nerves: Yes Equal, round and reactive pupils present Cognition (Neuro): normal cognition Gait exam (Neuro): Normal gait present Motor exam (neuro): 5/5 motor strength present throughout Sensory Exam: No Sensory deficit (Neuro) Deep tendon reflexes (DTR's): Right patellar reflex intensity grade: 2+ and Left patellar reflex intensity grade: 2+ Extrem Other: Large mass @ R shoulder 15cm General: Yes normal to inspection and No edema Psych Appearance: grossly normal Affect: normal affect Attitude: cooperative Thought process: Normal thought process present Coding Level of Care Code Est Pt Prev Care >65y(04424) Diagnoses Adult general medical exam Z00.00 Mass of skin of right shoulder R22.31 Rash R21 Additional Codes CECY-7 Assessment Billing - CECY-7 Assessment Tool: CECY-7 Assessment 94104 ([id number]) PHQ-9 - 94900 - PHQ-9 Billing: Yes ([id number]) Assessment & Plan Assessment & Plan (1) Adult general medical exam: Code(s): Z00.00 - Encounter for general adult medical examination without abnormal findings Category: Medical Plan: 78-year-old?female?presents?for?complete?physical?exam Encouraged?healthy?diet?and?active?lifestyle (2) Mass of skin of right shoulder: Code(s): R22.31 - Localized swelling, mass and lump, right upper limb Category: Medical Plan: Mass?at?right?shoulder?which?patient?insists?is?lipoma?and?says?she?was?seeing?a?plastic?surgeon?at?[facility]. However,?she?also?says?that?her?surgeon?said?this?is?likely?due?to?a?lymphoma?wants?further?imaging.??Currently?she?is?at?an?impasse?regarding?this. I?do?not?have?notes?from?this?specialist?and?I?am?requesting?them (3) Rash: Code(s): R21 - Rash and other nonspecific skin eruption Category: Medical Plan: Patient?has?a?rash?which?has?been?difficult?to?treat. Had?referred?her?to?immunology?and?also?to?Dermatology.??She?has?had?difficulty?getting?appointments She?has?an?upcoming?appointment?for?Dermatology.??She?was?offered?an?appointment?with?immunology?and?she?declined?it?due?to?it?being?the?day?before?[place]. Advised?she?keep?appointment?with?Dermatology?and?also?immunology. 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 Follow-up?with?dermatology Follow-up?with?your?surgeon. ?Requesting?notes Will?follow-up?in?a?month?to?discuss?further Orders: Orders Erythrocyte Sedimentation Rate Today R21 - Rash and other nonspecific skin eruption FAUSTO Reflex Titer and Pattern Today R21 - Rash and other nonspecific skin eruption Complete Blood Count Auto Diff Today R21 - Rash and other nonspecific skin eruption, Z00.00 - Encounter for general adult medical examination without abnormal findings Comprehensive [place]. Panel Fast Today R21 - Rash and other nonspecific skin eruption, Z00.00 - Encounter for general adult medical examination without abnormal findings Lactate Dehydrogenase Today R21 - Rash and other nonspecific skin eruption CRP High Sensitivity Today R21 - Rash and other nonspecific skin eruption
[2024-02-26 13:32] VITALS: BP 140/70; PULSE 101; RESP 16; TEMP 36.7; O2SAT 96; BMI 25.6
[2024-02-26 13:36] VITALS: BP 110/68
== END 2024-02-26 14:28 | disposition home or self-care (01) ==
PROVIDERS: PCP Family Medicine; Visit Provider Family Medicine
DX: Z00.00 Encounter for general adult medical examination without abnormal findings (principal); R22.31 Localized swelling, mass and lump, right upper limb; R21 Rash and other nonspecific skin eruption

== ENCOUNTER → 2024-02-26 13:09 | Outpatient (BNVA) | payer MEDICARE, SELFPAY | PROVIDERS: PCP Family Medicine; Visit Provider Family Medicine | DX: R22.31 Localized swelling, mass and lump, right upper limb (principal); R21 Rash and other nonspecific skin eruption | CPT/HCPCS: 96127; 99397 ==

== ENCOUNTER 2024-04-14 11:01 | Outpatient (REF) | payer MEDICARE, SELFPAY ==
[2024-04-14 14:28] LABS: MANUAL DIFF FLAG NO
[2024-04-14 14:42] LABS: Basophils Absolute Auto 0.1 X10*3/uL (0.0-0.2); Basophils Percent Auto 1.2 % (0-2); Eosinophils Absolute Auto 0.1 X10*3/uL (0.0-0.4); Eosinophils Percent Auto 1.9 % (0-4); Hematocrit 45.1 % (37.0-47.0); Hemoglobin 14.1 g/dl (12.0-16.0); Imm Gran Abs Auto 0.02 X10*3/uL (0.00-0.03); Imm Gran Pct Auto 0.3 % (0.0-0.4); Lymphocytes Absolute Auto 2.2 X10*3/uL (1.2-4.9); Lymphocytes Percent Auto 30.1 % (20-40); Mean Corpuscular HGB Conc 31.3 g/dl (31.0-35.0); Mean Corpuscular Hemoglobin 27.1 pg (27.0-33.0); Mean Corpuscular Volume 86.7 fL (80.0-98.0); Mean Platelet Volume 9.8 fL (9.4-12.3); Monocytes Absolute Auto 0.7 X10*3/uL (0.1-1.2); Monocytes Percent Auto 9.2 % (2-11); Neutrophils Absolute Auto 4.3 x10*3/uL (2.0-8.3); Neutrophils Percent Auto 57.3 % (45-73); Platelet Count 254 X10*3/uL (160-400); Red Cell Distribution Width 13.4 % (11.0-16.0); White Blood Count 7.4 X10*3/uL (4.8-10.8)
[2024-04-14 15:00] LABS: Alanine Aminotransferase 17 U/L (0-31); Alkaline Phosphatase 80 U/L (39-117); Anion Gap 14 (12-20); Aspartate Amino Transferase 22 U/L (5-31); Bilirubin Total 0.5 mg/dL (0.0-1.0); Blood Urea Nitrogen 16 mg/dL (9-16); Calcium 9.8 mg/dL (8.4-10.2); Carbon Dioxide 29 mmol/L (22-29); Chloride 105 mmol/L (96-108); Estimated Glomerular Filt Rate > 60; Glucose Fasting 117 mg/dL (60-99); Potassium 3.9 mmol/L (3.3-5.1); Sodium 144 mmol/L (135-145); Total Protein 7.5 g/dL (6.5-8.0)
[2024-04-14 15:06] LABS: Lactate Dehydrogenase 256 U/L (122-220)
[2024-04-14 15:13] LABS: Erythrocyte Sedimentation Rate 9 MM/HR (0-20)
[2024-04-15 18:19] LABS: CRP High Sensitivity 2.8 mg/L
[2024-04-19 07:33] LABS: Anti Nuclear Antibody Screen NEGATIVE (NEGATIVE)
== END 2024-04-14 11:02 | disposition home or self-care (01) ==
LOC: HO.WFDLDS 11:01
PROVIDERS: Visit Provider Family Medicine
DX: Z00.00 Encounter for general adult medical examination without abnormal findings (principal); R21 Rash and other nonspecific skin eruption
CPT/HCPCS: 36415; 80053; 83615; 85025; 85652; 86038; 86141

== ENCOUNTER 2024-04-22 13:19 | Outpatient (AMB) | payer MEDICARE, SELFPAY ==
--- NOTE | 2024-04-22 13:36 | A.OFFPC_ITS ---
Vital Signs 04/22/24 13:38 Height 4 ft 11.65 in Weight 137 lb 8 oz BMI 27.2 BP 120/78 Blood Pressure Location Lt brachial Position Sitting Respiration 14 Pulse 97 Pulse Source Pulse Oximeter Temp 98.3 F Temp Source Oral Pulse Oximetry (%) 98 Oxygen Delivery Method Room Air Intake Visit Reasons: f/u on bloodwork Intake Note: lab review Allergies soy Allergy (Severe, Verified 04/22/24 13:37) Hives amoxicillin [From Augmentin] Allergy (Unknown, Verified 04/22/24 13:37) Rash clavulanic acid [From Augmentin] Allergy (Unknown, Verified 04/22/24 13:37) Rash Seasonal Allergies Allergy (Unknown, Verified 04/22/24 13:37) Unknown codeine Allergy (Verified 04/22/24 13:37) Unknown Tobacco use date assessed: 07/14/23 Dental Screening Dental Screen Date: 07/14/23 HPI f/u on bloodwork HPI Details 78 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 R anterior shoulder mass US showed large 15cm subcutaenous mass overlying R anterior shoulder. MRI recommended to exclude low-grade liposarcoma. Ongoing complaints of a rash. [facility] Medical History History of COVID-19 Hx of myocardial infarction Hx of coronary artery disease Surgical History History of angioplasty Family History Mother No problems noted. Father No problems noted. Social History Housing: House Patient Tobacco Use Status: Never used Tobacco e-Cigarette/Vaping Use: Never Used Second Hand Smoke Exposure: No service: No Current occupational status: retired Current occupational exposures/hazards: No Cognitive needs: No Hearing needs: No Vision needs: No Questionnaire Thrive Questionnaire Date Thrive assessed: 02/26/24 CECY-7 AMB Questionnaire CECY-7 Date CECY - 7 assessed: 02/26/24 Source: Developed by Drs. Yusef Luque, Carmen Wooten, Onel Galeas and colleagues, with an educational evette from [employer]. Physical exam (Primary Care) Vital Signs: Last Vital Signs Temp 98.3 F 04/22/24 13:38 Pulse 97 04/22/24 13:38 Resp 14 04/22/24 13:38 BP 120/78 04/22/24 13:38 Pulse Ox 98 04/22/24 13:38 Oxygen Delivery Method Room Air 04/22/24 13:38 BMI result Body Mass Index 27.2 Tobacco/Smoking Status: Tobacco use Status Tobacco use date assessed 07/14/23 04/22/24 13:43 Patient Tobacco Use Status Never used Tobacco 04/22/24 13:43 e-Cigarette/Vaping Use Never Used 04/22/24 13:43 Thrive Assessment: Date of Thrive Assessment Date Thrive assessed 02/26/24 04/22/24 13:43 Coding Level of Care Code Est Pt Level 3 (75841) Diagnoses Mass of skin of right shoulder R22.31 Rash R21 Assessment & Plan Assessment & Plan (1) Mass of skin of right shoulder: Code(s): R22.31 - Localized swelling, mass and lump, right upper limb Category: Medical Plan: Patient?has?large?mass?at?r ight?shoulder?and?she?described?conversations?with?prior?physicians?in?which?she ?referred?to?their?description?as?a? lymphoma . Incoming?records?show?this?was?described?as?a?lipoma?and?this?is?consist ent?with?exam?and?likely?consistent?with?recent?ultrasound.??Ultrasound?does?so? some?mild?heterogeneity?and?the?radiologist?recommended?an?MRI?given?this?and?th e?overall?size?mass. Will?check MRI to exclude low-grade liposarcoma though?I?suspect?this?is?just?a?large?lipoma. 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 (2) Rash: Code(s): R21 - Rash and other nonspecific skin eruption Category: Medical Plan: Patient?had?a?rash?after?starting?a?medication/supplement?for?cholesterol. Patient?did?not?have?so? a?listed?on?her?allergy?list?but?this?was?a?component?that?supplement. However, patient?now?notes?that?she?also?had?an?insect?sting?bite?around?the?same?time?in ?this?can?certainly sensitize?the?immune?system?and?cause?rashes?for?up?to weeks?or?even?couple?of?months. Almost?fully?resolved?now. She?will?let?me?know?if?this?worsens?or?does?not?fully Orders: Orders MR chest w con Today R22.31 - Localized swelling, mass and lump, right upper limb
[2024-04-22 13:38] VITALS: BP 120/78; PULSE 97; RESP 14; TEMP 36.8; O2SAT 98; BMI 27.2
== END 2024-04-22 14:13 | disposition home or self-care (01) ==
PROVIDERS: PCP Family Medicine; Visit Provider Family Medicine
DX: R22.31 Localized swelling, mass and lump, right upper limb (principal); R21 Rash and other nonspecific skin eruption

== ENCOUNTER → 2024-04-22 13:19 | Outpatient (BNVA) | payer MEDICARE, SELFPAY | PROVIDERS: PCP Family Medicine; Visit Provider Family Medicine | DX: R22.31 Localized swelling, mass and lump, right upper limb (principal); R21 Rash and other nonspecific skin eruption | CPT/HCPCS: 99212 ==

== ENCOUNTER 2024-07-22 13:21 | Outpatient (AMB) | payer MEDICARE, SELFPAY ==
--- NOTE | 2024-07-22 13:23 | A.OFFPC_ITS ---
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: No Is last menstrual period known: No Post menopausal: No Patient : No Allergies soy Allergy (Severe, Verified 07/22/24 13:25) Hives amoxicillin [From Augmentin] Allergy (Unknown, Verified 07/22/24 13:25) Rash clavulanic acid [From Augmentin] Allergy (Unknown, Verified 07/22/24 13:25) Rash Seasonal Allergies Allergy (Unknown, Verified 07/22/24 13:25) Unknown codeine Allergy (Verified 07/22/24 13:25) Unknown Medication List - Last Reconciled 07/22/24 by Roldan Carty MD acetylcysteine (NAC) 600 mg PO DAILY ascorbic acid (vitamin C) 500 mg PO BID aspirin 81 mg PO DAILY atenolol 25 mg (1/2 x 50 mg) PO DAILY 90 days cholecalciferol (vitamin D3) 50 mcg PO DAILY fluticasone propionate 50 mcg/actuation (Flonase Allergy Relief) 1 spray intranasal Q12H 30 days glucosamine sulfate 1,000 mg PO BID magnesium hydroxide 200 mg PO olopatadine 0.7% 1 drp ophthalmic (eye) DAILY PRN 30 days red clover leaf extract mg PO turmeric root extract 1,000 mg PO DAILY Tobacco use date assessed: 07/22/24 Fall risk assessment: No Falls in past year Last assessed Fall Risk: 07/22/24 Dental Screening Dental Screen Date: 07/22/24 Did you have a dental visit in the last 12 months?: Yes Did you have a dental problem in the last 6 months where you did not have access to dental care?: No Was dental information given to patient?: Patient has dentist [facility] Medical History History of COVID-19 Hx of myocardial infarction Hx of coronary artery disease Surgical History History of angioplasty Family History Mother No problems noted. Father No problems noted. Social History Housing: House Patient Tobacco Use Status: Never used Tobacco e-Cigarette/Vaping Use: Never Used Second Hand Smoke Exposure: No service: No Current occupational status: retired Current occupational exposures/hazards: No Cognitive needs: No Hearing needs: No Vision needs: No Questionnaire Thrive Questionnaire Date Thrive assessed: 02/26/24 CECY-7 AMB Questionnaire CECY-7 Date CECY - 7 assessed: 02/26/24 Source: Developed by Drs. Yusef Luque, Carmen Wooten, Onel Galeas and colleagues, with an educational evette from [employer]. Physical exam (Primary Care) Vital Signs: Last Vital Signs Temp 97.4 F 07/22/24 13:26 Pulse 93 07/22/24 13:26 Resp 16 07/22/24 13:26 BP 148/74 H 07/22/24 13:26 Pulse Ox 96 07/22/24 13:26 Oxygen Delivery Method Room Air 07/22/24 13:26 BMI result Body Mass Index 27.0 Tobacco/Smoking Status: Tobacco use Status Tobacco use date assessed 07/22/24 07/22/24 13:30 Patient Tobacco Use Status Never used Tobacco 07/22/24 13:30 e-Cigarette/Vaping Use Never Used 07/22/24 13:30 Thrive Assessment: Date of Thrive Assessment Date Thrive assessed 02/26/24 07/22/24 13:30 Coding Level of Care Code Est Pt Level 4 (35644) Diagnoses Mass of shoulder region R22.30 Allergic rhinitis J30.9 Hypertension I10 Assessment & Plan Assessment & Plan (1) Mass of shoulder region: Code(s): R22.30 - Localized swelling, mass and lump, unspecified upper limb Category: Medical Plan: Large?mass?of?right?shoulder. 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 this?was?declined?by?her?insurance.??Had?spoken?to?patient?and?she?did?not?want? the?MRI. I?spoke?to?her?again?today?regarding?this.??Patient?was?under?the?impression?nini t?there?was?radiation?involved?in?an?MRI?with contrast. We?discussed?that?there?is?no?radiation?from?an?MRI?with?contrast?and?contrast?d ye?is?different?than?iodinated?dye,?common?in?x-ray?and?CT. Patient?says?she?will?think?about?the?MRI. Also?spoke?to?her?about?consulting?with?a?surgeon. She?is?more?amenable?to?discussing?the?above?with?a?surgeon?and?wants?a?plastic? surgeon?but?not?one?from?[facility]. Will?make?referral (2) Allergic rhinitis: Code(s): J30.9 - Allergic rhinitis, unspecified Category: Medical Plan: Use?Amber Start?nasal?steroid Olopatadine?for?itchy?eyes Nasal?saline (3) Hypertension: Code(s): I10 - Essential (primary) hypertension Category: Medical Plan: Blood?pressure?is?elevated?today. Goal?is?less?than?130/80 Was?in?controlled?range?at?last?visit Taking?her?medications?as?prescribed.??She?says?that?she?is?just?agitated?today? and frustrated?with?allergies. No?changes?to?her?medication Will?continue?to?monitor Orders: Orders Comprehensive [place]. Panel Fast Today Z00.00 - Encounter for general adult medical examination without abnormal findings Complete Blood Count Auto Diff Today Z00.00 - Encounter for general adult medical examination without abnormal findings Lipid Panel Today Z00.00 - Encounter for general adult medical examination without abnormal findings UA CC w/rflx Micro + Cult Today Z00.00 - Encounter for general adult medical examination without abnormal findings Microalbumin, Random (w Creat) Today I10 - Essential (primary) hypertension TSH reflex Free T4 Today Z00.00 - Encounter for general adult medical examination without abnormal findings Referrals Plastic Surgery Referral R22.30 - Localized swelling, mass and lump, unspecified upper limb Medications: New olopatadine 0.7% 1 drp ophthalmic (eye) DAILY PRN 5 mL 0RF itching 30 days fluticasone propionate 50 mcg/actuation (Flonase Allergy Relief) administer into each nostril 1 spray intranasal Q12H 16 grams 2RF 30 days
[2024-07-22 13:26] VITALS: BP 148/74; PULSE 93; RESP 16; TEMP 36.3; O2SAT 96; BMI 27.0
== END 2024-07-22 14:05 | disposition home or self-care (01) ==
LOC: HO.HMCFM 13:22
PROVIDERS: PCP Family Medicine; Visit Provider Family Medicine
DX: R22.30 Localized swelling, mass and lump, unspecified upper limb (principal); J30.9 Allergic rhinitis, unspecified; I10 Essential (primary) hypertension

== ENCOUNTER → 2024-07-22 13:21 | Outpatient (BNVA) | payer MEDICARE, SELFPAY | PROVIDERS: PCP Family Medicine; Visit Provider Family Medicine | DX: R22.31 Localized swelling, mass and lump, right upper limb (principal); J30.9 Allergic rhinitis, unspecified; I10 Essential (primary) hypertension | CPT/HCPCS: 99212 ==

== ENCOUNTER 2025-02-14 10:41 | Outpatient (REF) | payer MEDICARE, SELFPAY ==
--- OUTSIDE RECORDS SUMMARY | 2025-02-14 12:47 | XMS_ITS | Clinical Summary ---
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 Active therapeutic multivitamin tablet Take 1 tablet by mouth daily. Active Family History Medical History Relation Comments COPD Mother Relation Status Comments Father Mother Social History Tobacco Use Types Packs/Day Years Used Date Smoking Tobacco: Never Smokeless Tobacco: Never Tobacco Cessation:Counseling Given: Not Answered Alcohol Use Standard Drinks/Week Comments Yes 0 (1 standard drink = 0.6 oz pur e alcohol) Education Answer Date Recorded Are you interested in more education? Not on gloria e 07/26/2024 Are you concerned about learning? Not on file 07/26/2024 No 07/26/2024 No 07/26/2024 Digital Access Answer Date Recorded No 07/26/2024 No 07/26/2024 Reliable internet access at home? Not on file 07/26/2024 Device with a working camera? Not on file Comments Unknown Sex and Gender Information Value Date Recorded Sex Assigned at Not on file Legal Sex Female 10:37 AM EDT Gender Identity Not on file Sexual Orientation Not on file Last Filed Vital Signs Vital Sign Reading Time Taken Comments Blood Pressure 134/81 07/29/2024 4:26 PM EDT Pulse 93 07/29/2024 4:26 PM EDT Temperature - - Respiratory Rate - - Oxygen Saturation - - Inhaled Oxygen Concentration - - Weight 61.9 kg (136 lb 6.4 oz) 07/29/2024 4:26 P M EDT Height 149.9 cm (4' 11 ) 07/29/2024 4:26 PM EDT Body Mass Index 27.55 07/29/2024 4:26 PM EDT Plan of Treatment Health Maintenance Due Date Last Done Comments Adult Td,Tdap Booster 1945 DEPRESSION SCREENING 1955 PNEUMOCOCCAL VACCINES (50+ y ears) (1 of 1 - PCV) 1993 ZOSTER VACCINES (1 of 2) 1993 OSTEOPOROSIS SCREENING INITI AL (ONE-TIME) 2008 RSV VACCINE (1 - 1-dose 75+ series) 2018 INFLUENZA VACCINE (#1) 2024 COVID-19 VACCINE ( - 2024-2 6 season) 2024 HEPATITIS A VACCINES Aged Out No long er eligible based on patient's age to complete this topic HIB VACCINES Aged Out No longer eligi ble based on patient's age to complete this topic MENINGOCOCCAL VACCINES (ACWY) Aged Out No longer eligible based on patient's age to complete this topic MENINGOCOCCAL VACCINES (B) Aged Out N o longer eligible based on patient's age to complete this topic Medical Devices Not on file Insurance [employer] [place] [address] [place] [address] [place] [place] [address] MEDICARE HMO REPLACEMENT [employer] H[employer] REPLACEMENT MEDICARE HMO REPLACEMENT [employer] REPLACEMENT Care Teams Survival Equipment Repairer Relationship Specialty Start Date End Date Roldan Carty MD PCP - General Family Medicine 07/26/24 Additional Source Comments The information contained in this document represents components of the legal health record. It is not the complete legal health record[facility]
[2025-02-14 14:17] LABS: MANUAL DIFF FLAG NO
[2025-02-14 14:31] LABS: Hematocrit 45.2 % (37.0-47.0); Hemoglobin 13.9 g/dl (12.0-16.0); Imm Gran Abs Auto 0.02 X10*3/uL (0.00-0.03); Imm Gran Pct Auto 0.3 % (0.0-0.4); Lymphocytes Absolute Auto 2.2 X10*3/uL (1.2-4.9); Mean Corpuscular HGB Conc 30.8 g/dl (31.0-35.0); Mean Corpuscular Hemoglobin 26.4 pg (27.0-33.0); Mean Corpuscular Volume 85.9 fL (80.0-98.0); NRBC Abs Auto 0.000 X10*3/uL (0.0-0.012); NRBC Pct Auto 0.0 /100WBC (0.0-0.2); Platelet Count 251 X10*3/uL (160-400); Red Blood Count 5.26 X10*6/uL (4.20-5.50); White Blood Count 7.1 X10*3/uL (4.8-10.8)
[2025-02-14 16:42] LABS: Alanine Aminotransferase 15 U/L (0-31); Albumin Level 4.0 g/dL (3.5-5.0); Alkaline Phosphatase 81 U/L (39-117); Anion Gap 14 (12-20); Aspartate Amino Transferase 22 U/L (5-31); Blood Urea Nitrogen 16 mg/dL (9-16); Calcium 9.8 mg/dL (8.4-10.2); Carbon Dioxide 27 mmol/L (22-29); Chloride 106 mmol/L (96-108); Cholesterol 216 mg/dL (<200); Estimated Glomerular Filt Rate > 60; HDL Cholesterol 60 mg/dL (>40); Potassium 4.7 mmol/L (3.3-5.1); Sodium 142 mmol/L (135-145); Total Protein 7.4 g/dL (6.5-8.0); Triglycerides 117 mg/dL (<150)
== END 2025-02-14 10:42 | disposition home or self-care (01) ==
LOC: HO.WFDLDS 10:41
PROVIDERS: Visit Provider Family Medicine
DX: Z00.00 Encounter for general adult medical examination without abnormal findings (principal); Z13.29 Encounter for screening for other suspected endocrine disorder; Z13.6 Encounter for screening for cardiovascular disorders
CPT/HCPCS: 36415; 80053; 80061; 84443; 85025

== ENCOUNTER 2025-02-22 10:00 | Outpatient (AMB) | payer MEDICARE, SELFPAY ==
--- NOTE | 2025-02-22 10:03 | AM.OFFVISMDC ---
Intake Vital Signs 02/22/25 10:08 Height 4 ft 11.65 in Weight 140 lb 8 oz BMI 27.8 BP 132/73 Blood Pressure Location Lt brachial Position Sitting Respiration 12 Pulse 105 H Pulse Source Pulse Oximeter Temp 97.6 F Temp Source Oral Pulse Oximetry (%) 99 Oxygen Delivery Method Room Air Intake Visit Reasons: MAWV Intake Note: AWV and review labs Spring Up Supervisor Required: No Allergies soy Allergy (Severe, Verified 02/22/25 10:14) Hives amoxicillin (From Augmentin) Allergy (Unknown, Verified 02/22/25 10:14) Rash clavulanic acid (From Augmentin) Allergy (Unknown, Verified 02/22/25 10:14) Rash Seasonal Allergies Allergy (Unknown, Verified 02/22/25 10:14) Unknown codeine Allergy (Verified 02/22/25 10:14) Unknown Medication List - Last Reconciled 02/22/25 by Louisa Mahoney, TECHNICIAN [employer]- acetylcysteine (NAC) 600 mg PO DAILY ascorbic acid (vitamin C) 500 mg PO BID aspirin 81 mg PO DAILY atenolol 25 mg (1/2 x 50 mg) PO DAILY 90 days cholecalciferol (vitamin D3) 50 mcg PO DAILY fluticasone propionate 50 mcg/actuation (Flonase Allergy Relief) 1 spray intranasal Q12H 30 days glucosamine sulfate 1,000 mg PO BID magnesium hydroxide 200 mg PO olopatadine 0.7% 1 drp ophthalmic (eye) DAILY PRN 30 days red clover leaf extract mg PO turmeric root extract 1,000 mg PO DAILY Do you need a note to return to daycare/school/sports/work: No HPI HPI Comments History of Present Illness Details Here today for AWV. The Medicare Annual Wellness Visit (AWV) is a yearly appointment with a health professional to identify health risks and help reduce them and to create or update a personalized prevention plan. During a Medicare AWV, health professionals should also review any current opioid prescriptions, detect any cognitive impairment, and establish or update medical and family history. 79 y/o F with CECY, CAD, MDD, HLD, HTN, prediabetes SurgHx: Y FHx: Y SocHx: Y Health Maintenance: See scanned preventative medicine assessment with personalized health plan and screening schedule. Colon: declined Mammo declined DEXA declined PAP aged out Vaccines: declined all AAA screen: NA EKG: declined Labs 02/14/25 fasting glucose 108, LDL 133, TC 216, HDL 60 Augustine of Care: As documented in chart Visual Acuity: Glasses next exam 03/2025 Hearing Screening: no concerns ACP: HCP Y, Full code Dietary/Nutrition/Exercise Edu provided: Y During the course of the visit the patient was educated and counseled about appropriate screening and preventative services. Patient instructions were provided to the patient in written or electronic format. I have reviewed and verified the above information. History of Present Illness The patient is an 79-year-old female presenting for an annual medicare wellness visit. Hyperlipidemia: - The patient's cholesterol is on the higher end, with a total cholesterol of 216 and an LDL of 133, which is an increase from a previous value of 109. - Her HDL has decreased to 60 from 67 last year. - The patient refuses to take cholesterol medication due to previous adverse effects and has also declined alternatives such as Zetia. Prediabetes: - Fasting blood sugar has been slightly elevated for at least the last year, with a recent value of 108. - Her HbA1c was 5.7 in October of 2023, and her current A1c is 5.8, remaining in the prediabetic range. Scalp Condition: - The patient reports a worsening issue with a peeling, itchy, and dry scalp. - She has tried [id number] products, including Selsun Blue, without benefit. - A recent shampoo she used made her scalp and hair excessively dry. - The patient saw a senior quality technician previously but found the visit unhelpful and does not plan to return. - She also has eczema on the back of her neck irritated by a clothing tag. Urinary Incontinence: - The patient reports bothersome urinary leakage, which she attributes to normal aging. - It is not constant but occurs with stress, such as sneezing, when she has delayed urination. Coronary Artery Disease: - The patient has a history of coronary artery disease. - She declined an EKG during today's visit. Allergies: - The patient has known allergies to amoxicillin, seasonal allergens, codeine, and soy. - She reports a past severe allergic reaction to soy. Past Medical History - Generalized anxiety disorder - Coronary artery disease - Major depressive disorder - Hyperlipidemia - Hypertension - Prediabetes - Eczema - Arthritis - Allergies: Amoxicillin, seasonal allergies, codeine, soy Past Surgical History - Biopsy of a shoulder lesion by a plastic surgeon, which was benign. - The patient denies any other changes to her surgical history. Family History - No changes reported in family medical history. Social History - Tobacco: Denies being a current smoker. - Exercise: Reports being very active, including walking and moderate activities like clearing weeds. - Functional Status: Independent in all activities of daily living and does not receive assistance at home. - Driving: Actively drives without problems. - Fall History: No falls in the last year but reports a fear of falling. - Advance Directives: The patient has a healthcare proxy and a living will. - Code Status: Wishes to be a full code, stating that if her wants to disconnect life support, he must get three opinions. Health Maintenance - EKG: Declined. - Mammogram: Declines, stating a belief that they cause cancer. - Colonoscopy: Declines and has never had one. - Vaccinations: Declines influenza vaccination. - Bone Density Screening: Reports a previous scan was perfect and declines additional screening. - Eye Exam: Has an upcoming eye exam scheduled for March. Results - Complete Blood Count (CBC): Normal and stable as of February 14, 2025. - Comprehensive Metabolic Panel (CMP): Electrolytes and kidney function are good. - Fasting Blood Sugar: 108. - A1c: 5.8% (previously 5.7%). - Liver Function Tests: Bilirubin and liver enzymes are stable. - Lipid Panel: Total cholesterol 216 mg/dL, LDL 133 mg/dL, HDL 60 mg/dL. - Thyroid Stimulating Hormone (TSH): Normal. Medical Decision Making The patient is an 79-year-old female here for her annual wellness visit with a history of generalized anxiety disorder, coronary artery disease, major depressive disorder, hyperlipidemia, and hypertension. Lab results were reviewed, noting an increase in LDL to 133 and a stable prediabetic state with an A1c of 5.8. The patient remains opposed to statin therapy due to past adverse effects and declined alternatives. The patient's primary new complaint is a worsening scalp condition characterized by peeling, itching, and dryness, which has not responded to [id number]-ozprwjz treatments. Given the symptoms and failure of previous therapies, a trial of prescription fluocinolone oil is warranted. The patient also reports bothersome stress urinary incontinence; first-line conservative management with pelvic floor exercises was recommended. Preventative care was discussed, with the patient declining an EKG, mammogram, colonoscopy, and influenza vaccine. Her advance directives were reviewed, and her desire for full code status was documented. Given her stated fear of falling, resources for a medical alert system were offered. A physical exam was declined Plan 1. Annual Wellness Visit - Reviewed recent lab results. - Discussed and documented patient's refusal of EKG, mammogram, colonoscopy, and influenza vaccination. - Reviewed advance directives and confirmed full code status. - Addressed fall risk and offered resources for a medical alert system. - Follow-up recommended in approximately [address] Carty 2. Scalp Condition - Prescribed fluocinolone 0.01% oil to address the itchy, peeling scalp. - Patient was instructed to apply the oil to the scalp at night, massage it in, and cover with a shower cap. - Prescription sent to [facility] in [facility]. 3. Hyperlipidemia - Acknowledged patient's refusal to take cholesterol medication due to prior adverse effects. - No new medications will be started at this time. 4. Prediabetes - A1c today was 5.8, up slightly from 5.7 last year, remaining in the prediabetic range. - Continue monitoring and lifestyle management. 5. Stress Urinary Incontinence - Recommended the patient research pelvic floor exercises online to help strengthen pelvic muscles and reduce leakage. Patient Instructions - A prescription for fluocinolone oil has been sent to your pharmacy ([facility]) for your itchy, peeling scalp. - Apply the oil to your scalp at night, massage it in, and you can cover your hair with a shower cap. - For urinary leakage, you can look up pelvic floor exercises online to help strengthen those muscles. - We discussed options for a medical alert device, like Lifeline, because you have a fear of falling. - Your blood sugar remains in the prediabetic range. - You should schedule your next appointment in about 6 months. Consent The patient was informed that a physical exam is not typically included in a Medicare Annual Wellness Visit and that performing one would result in a regular visit copay, for which she declined. Patient was informed and verbally consented to the use of an ambient scribe for clinic note documentation during this visit. [facility] Medical History History of COVID-19 Hx of myocardial infarction Hx of coronary artery disease Surgical History History of angioplasty Family History Mother No problems noted. Father No problems noted. Social History Housing: House Patient Tobacco Use Status: Never used Tobacco e-Cigarette/Vaping Use: Never Used Second Hand Smoke Exposure: No service: No Current occupational status: retired Current occupational exposures/hazards: No Cognitive needs: No Hearing needs: No Vision needs: No Questionnaire Medicare Wellness Checkup What is your age?: 80 or older What gender do you identify with?: female During the past 4 weeks, how much have you been bothered by emotional problems such as feeling anxious, depressed, irritable, sad or downhearted, and blue?: slightly During the past 4 weeks, has your physical & emotional health limited your social activities with family, friends, neighbors, or groups?: slightly During the past 4 weeks, how much bodily pain have you generally had?: no pain During the past 4 weeks, was someone available to help you if you needed & wanted help?: yes, as much as I wanted During the past 4 weeks, what was the hardest physical activity you could do for at least 2 minutes?: moderate Can you get to places out of walking distance without help? (For eg., can you travel alone on buses, taxis or drive your car?): Yes Can you go shopping for groceries or clothes without someone's help?: Yes Can you prepare your own meals?: Yes Can you do your housework without help?: Yes Because of any health problems, do you need the help of another person with your personal care needs such as eating, bathing, dressing or getting around the house?: No Can you handle your own money without help?: Yes During the past 4 weeks, how would you rate your health in general?: very good During the past 4 weeks how have things been going for you?: pretty bad Are you having difficulties driving your car?: no Do you always fasten your seat belt when you are in a car?: yes, usually During past 4 weeks, have you been bothered by the following: never: Falling or dizzy when standing up, Sexual problems?, Trouble eating well?, Teeth or denture problems? and Problems using the telephone? and always: Tiredness or fatigue? Have you fallen 2 or more times in the past year?: No Are you afraid of falling?: Yes Are you a smoker?: no During the past 4 weeks, how many drinks of wine, beer, or other alcoholic beverages did you have?: no alcohol at all Do you exercise for about 20 minutes 3 or more times a week?: yes, all the time Have you been given information to help with the following?: no: Hazards in your house that might hurt you? and no: Keeping track of your medications? How often do you have trouble taking medicines the way you have been told to take them?: I always take medicine as prescribed How confident are you that you can control & manage most of your health problems?: very confident What is your race?: White Activity of Daily Living Bathing - sponge bath, tub bath or shower: receives no assistance (gets in/out by self, if usual bathing means Dressing - getting clothes from closets & drawers, including inner/outer garments & fasteners.: gets clothes & gets completely dressed without help Toileting - going to the 'toilet room' for urine/bowel elimination & cleaning self/arranging clothes: goes to toilet room, cleans self, arranges clothes without help Transfer: moves in & out of bed and chair without help (may use support object) Continence: controls urination/bowel movements completely by self Feeding: feeds self without help Total Score: 0 Information obtained from: patient Using telephone: independent Traveling: independent Shopping: independent Preparing meals: independent Housework: independent Taking medicine: independent Managing money: independent PHQ-9 Over the last 2 weeks, how often have you been bothered by any of the following problems? 1. Little interest or pleasure in doing things: not at all 2. Feeling down, depressed, or hopeless: not at all 3. Trouble falling or staying asleep, or sleeping too much: not at all 4. Feeling tired or having little energy: not at all 5. Poor appetite or overeating: not at all 6. Feeling bad about yourself - or that you are a failure or have let yourself or your family down: not at all 7. Trouble concentrating on things, such as reading the newspaper or watching television: not at all 8. Moving or speaking so slowly that other people could have noticed. Or the opposite - being so fidgety or restless that you have been moving around a lot more than usual: not at all 9. Thoughts that you would be better off or of hurting yourself in some way: not at all Total score: 0 Depression Screening Interpretation: Negative Depression Screening Done: Yes [id number] - PHQ-9 Billing: Yes Source: Developed by Drs. Yusef Luque, Carmen Wooten, Onel Galeas and colleagues, with an educational evette from [employer]. Physical Exam Vital Signs: Last Vital Signs Temp 97.6 F 02/22/25 10:08 Pulse 105 H 02/22/25 10:08 Resp 12 02/22/25 10:08 BP 132/73 02/22/25 10:08 Pulse Ox 99 02/22/25 10:08 Oxygen Delivery Method Room Air 02/22/25 10:08 BMI result Body Mass Index 27.8 Office Procedures EKG Details: DO NOT BILL, PATIENT REFUSED!! [id number], Complete Vision Screening Right Eye: 20/25 Left Eye: 20/30 Bilateral: 20/25 Color: Pass Corrected: Pass (wearing glasses) 35325 - Vision Screening Results AMB Hemoglobin A1c AMB Hemoglobin A1c 5.8 % Last Edit by Arsalan Mendoza MA on 02/22/25 10:22 Assessment & Plan Assessment & Plan (1) Encounter for subsequent annual wellness visit (AWV) in Medicare patient: Onset Date: ~02/22/25 Code(s): Z00.00 - Encounter for general adult medical examination without abnormal findings (2) ACP (advance care planning): Code(s): Z71.89 - Other specified counseling (3) Pre-diabetes: Code(s): R73.03 - Prediabetes (4) Rash: Code(s): R21 - Rash and other nonspecific skin eruption (5) Mammogram declined: Code(s): Z53.20 - Procedure and treatment not carried out because of patient's decision for unspecified reasons (6) Colon cancer screening declined: Code(s): Z53.20 - Procedure and treatment not carried out because of patient's decision for unspecified reasons (7) Influenza vaccination declined: Code(s): Z28.21 - Immunization not carried out because of patient refusal (8) Tetanus, diphtheria, and acellular pertussis (Tdap) vaccination declined: Code(s): Z28.21 - Immunization not carried out because of patient refusal (9) Pneumococcal vaccination declined: Code(s): Z28.21 - Immunization not carried out because of patient refusal Plan . Orders: Orders AMB Hemoglobin A1c Today Z13.9 - Encounter for screening, unspecified Medications: New fluocinolone 0.01% 1 appl topical DAILY 118.28 mL 2RF Patient Instructions: Patient Instructions - A prescription for fluocinolone oil has been sent to your pharmacy ([facility]) for your itchy, peeling scalp. - Apply the oil to your scalp at night, massage it in, and you can cover your hair with a shower cap. - For urinary leakage, you can look up pelvic floor exercises online to help strengthen those muscles. - We discussed options for a medical alert device, like Lifeline, because you have a fear of falling. - Your blood sugar remains in the prediabetic range. - You should schedule your next appointment in about [address] Carty Health screenings for women You should visit your health care provider from time to time, even if you are healthy. The purpose of these visits is to: Screen for medical issues Assess your risk for future medical problems Encourage a healthy lifestyle Update vaccinations and other preventive care services Help you get to know your provider in case of an illness Information Even if you feel fine, you should still see your provider for regular checkups. These visits can help you avoid problems in the future. For example, the only way to find out if you have high blood pressure is to have it checked regularly. High blood sugar and high cholesterol levels also may not have any symptoms in the early stages. A simple blood test can check for these conditions. There are specific times when you should see your provider or receive specific health screenings. The [place] Preventive Services Task Force publishes a list of recommended screenings. Below are screening guidelines for women ages 18 to 39. BLOOD PRESSURE SCREENING Your blood pressure should be checked at least once every 3 to 5 years if: Your blood pressure is in the normal range (top number less than 120 mm Hg and bottom number less than 80 mm Hg) You don't have risk factors for high blood pressure Ask your provider if you need your blood pressure checked more often if: The top number is 120 to 129 mm Hg or the bottom number is 70 to 79 mm Hg You have diabetes, heart disease, kidney problems, are overweight, or have certain other health conditions You have a first-degree relative with high blood pressure You are Black You had high blood pressure during a If the top number is 130 mm Hg or greater or the bottom number is 80 mm Hg or greater, this is considered stage 1 hypertension. Schedule an appointment with your provider to learn how you can reduce your blood pressure. Watch for blood pressure screenings in your area. Ask your provider if you can stop in to have your blood pressure checked. BREAST CANCER SCREENING Experts do not agree about the benefits of breast self-exams in finding breast cancer or saving lives. Talk to your provider about what is best for you. A screening mammogram is not recommended for most women under age 40. Your provider may discuss and recommend mammograms, MRI scans, or ultrasounds if you have an increased risk for breast cancer, such as: A mother or sister who had breast cancer at a young age (most often starting screening earlier than the age the close relative was diagnosed) You carry a high-risk genetic marker CERVICAL CANCER SCREENING Cervical cancer screening should start at age 21 years unless your provider advises otherwise. After the first test: Women ages 21 through 29 should have a Pap test every 3 years. Exoprts do not agree on whether HPV testing is recommended for this age group. Women ages 30 through 65 should be screened with either a Pap test every 3 years or the HPV test every 5 years or both tests every 5 years (called cotesting ). Women who have been treated for precancer (cervical dysplasia) should continue to have Pap tests for 20 years after treatment or until age 65, whichever is longer. If you have had your uterus and cervix removed (total hysterectomy), and you have not been diagnosed with cervical cancer or precancer (high grade cervical neoplasia), you do not need cervical cancer screening. CHOLESTEROL SCREENING Cholesterol screening should begin at: Age 45 for women with no known risk factors for coronary heart disease Age 20 for women with known risk factors for coronary heart disease Repeat cholesterol screening should take place: Every 5 years for women with normal cholesterol levels More often if changes occur in lifestyle (including weight gain and diet) More often if you have diabetes, heart disease, kidney problems, or certain other conditions DIABETES SCREENING You should be screened for diabetes starting at age 35 and then repeated every 3 years if you have no risk factors for diabetes. Screening may need to start earlier and be repeated more often if you have other risk factors for diabetes, such as: You have a first degree relative with diabetes. You are overweight or have obesity. You have high blood pressure, prediabetes, or a history of heart disease. Screening for diabetes should be done if you are planning to become and you are overweight and have other risk factors such as high blood pressure. DENTAL EXAM Go to the dentist once or twice every year for an exam and cleaning. Your dentist will evaluate if you need more frequent visits. EYE EXAM Have an eye exam every 5 to 10 years before age 40. If you have vision problems, have an eye exam every 2 years or more often if recommended by your provider. You should have an eye exam that includes an examination of your retina (back of your eye) at least every year if you have diabetes. IMMUNIZATIONS Commonly needed vaccines include: Flu shot: get one every year. COVID-19 vaccine: ask your provider what is best for you. Tetanus-diphtheria and acellular pertussis (Tdap) vaccine: have one at or after age 19 as one of your tetanus-diphtheria vaccines if you did not receive it as an adolescent. Tetanus-diphtheria: have a booster (or Tdap) every 10 years. Varicella vaccine: receive 2 doses if you never had chickenpox or the varicella vaccine. Hepatitis B vaccine: receive 2, 3, or 4 doses, depending on your exact circumstances. Measles, mumps, and rubella (MMR) vaccine: receive 1 to 2 doses if you are not already immune to MMR. Your provider can tell you if you are immune. Ask your provider about the human papillomavirus (HPV) vaccine if: You have not received the HPV vaccine in the past You have not completed the full vaccine series (you should catch up on this shot) Ask your provider if you should receive other immunizations if you have certain health problems that increase your risk for some diseases such as pneumonia. INFECTIOUS DISEASE SCREENING Women who are sexually active should be screened for chlamydia and gonorrhea up until age 25. Women 25 years and older should be screened for chlamydia and gonorrhea if at high risk. Screening for hepatitis C: All adults ages 18 to 79 should get a one-time test for hepatitis C. people should be screened at every . Screening for human immunodeficiency virus (HIV): All people ages 15 to 65 should get a one-time test for HIV. Depending on your lifestyle and medical history, you may also need to be screened for infections such as syphilis and HIV, as well as other infections. PHYSICAL EXAM All adults should visit their provider from time to time, even if they are healthy. The purpose of these visits is to: Screen for disease Assess your risk of future medical problems Encourage a healthy lifestyle Update your vaccinations and other preventive care services Maintain a relationship with a provider in case of an illness Your height, weight, and BMI should be checked at every exam. During your exam, your provider may ask you about: Depression and anxiety Diet and exercise Alcohol and tobacco use Safety issues, such as using seat belts, smoke detectors, and intimate partner violence Your medicines and risk for interactions SKIN SELF-EXAM Your provider may check your skin for signs of skin cancer, especially if you're at high risk, such as if you: Have had skin cancer before Have close relatives with skin cancer Have a weakened immune system OTHER SCREENING Talk with your provider about colon cancer screening if you have a strong family history of colon cancer or polyps, or if you have had inflammatory bowel disease or polyps yourself. Routine bone density screening of women under 40 is not recommended. Quality Reporting (2019) Adult ([facility] [address] 138/[birth year]) Smoking risk assessment performed?: Yes Patient Tobacco Use Status: Never used Tobacco Depression screening performed: Yes Screen Results: Yes Negative screen Recommended changes not done: EKG Patient refused: Yes Systolic BP not done?: No Diastolic BP not done?: No BMI screening not done: No Sexual Activity Screening ([facility] [address]) Sexually active?: Yes Immunizations ([facility] [address] 147, 117) Annual Influenza Vaccine: No Flu Vaccine not done: patient reason Measles Antibody Test: No Mumps Antibody Test: No Rubella Antibody Test: No Varicella Antibody Test: No Anti Hepatitis A IgG Antigen test: No Anti Hepatitis B Virus Surface Ab test: No Fall Risk Screening ([facility]) Last assessed Fall Risk: 02/22/25 Fall risk assessment: No Falls in past year Dementia Assessment ([facility] [address]) Cognitive assessment recorded: Yes Assessment of cognition with standardized tool: Yes Depression/Bipolar (159/160/161/177) PHQ-9: Total score: 0 Ophthalmol:Cataracts Visual Acuity (133) Visual acuity exam performed: Yes Coding Level of Care Code Medicare Subsequent (G0439) Diagnoses Encounter for subsequent annual wellness visit (AWV) in Medicare patient Z00.00 ACP (advance care planning) Z71.89 Pre-diabetes R73.03 Rash R21 Mammogram declined Z53.20 Colon cancer screening declined Z53.20 Influenza vaccination declined Z28.21 Tetanus, diphtheria, and acellular pertussis (Tdap) vaccination declined Z28.21 Pneumococcal vaccination declined Z28.21 CPT Codes Advance Care Planning - Time spent: 16-45 minutes ([id number]) EKG - CPT: 94558-[id number], Complete ([id number]) Vision Screening - Vision Screenin - Vision Screening ([id number]) Additional Codes PHQ-9 - 89935 - PHQ-9 Billing: Yes ([id number]) Advance Care Planning Advance Care Planning discussion: Exists, not on file Date of discussion: 02/22/25 Who was present: SELF Forms completed: Health Care Proxy, MOLST and Living will Time spent: 16-45 minutes Actual minutes spent: 16
[2025-02-22 10:08] VITALS: BP 132/73; PULSE 105; RESP 12; TEMP 36.4; O2SAT 99; BMI 27.8
== END 2025-02-22 10:59 | disposition home or self-care (01) ==
LOC: HO.HMCFM 10:00
PROVIDERS: PCP Family Medicine; Visit Provider Nurse Practitioner Family
DX: Z00.00 Encounter for general adult medical examination without abnormal findings (principal); I25.10 Atherosclerotic heart disease of native coronary artery without angina pectoris; R73.03 Prediabetes; R21 Rash and other nonspecific skin eruption; E78.5 Hyperlipidemia, unspecified; Z71.89 Other specified counseling; Z28.21 Immunization not carried out because of patient refusal

== ENCOUNTER → 2025-02-22 10:00 | Outpatient (BNVA) | payer MEDICARE, SELFPAY | PROVIDERS: PCP Family Medicine; Visit Provider Nurse Practitioner Family | DX: Z00.00 Encounter for general adult medical examination without abnormal findings (principal); Z28.21 Immunization not carried out because of patient refusal; Z53.20 Procedure and treatment not carried out because of patient's decision for unspecified reasons; Z71.89 Other specified counseling; R73.03 Prediabetes; R21 Rash and other nonspecific skin eruption | CPT/HCPCS: 83036; 93005; 96127; 99497 ==